=== PATIENT | female | born 1985 | race American Indian/Alaskan Native ===

== ENCOUNTER → 2016-06-25 | Outpatient (CLI) | payer OTHER ==
[~2016-06-25] MED LIST: CEPH-507 PO; SULF1TAB35 PO
--- OUTSIDE RECORDS SUMMARY | 2016-06-25 11:19 | XMS REPORT | Continuity of Care Document ---
Author Author [facility] Organization [facility] Address Unknown Phone Unavailable Care Team Providers Care Wireless Manager Name Role Phone PCP Unavailable Source Comments Some departments are not documenting in the electronic medical record. If you do not see the information that you expected, contact Release of Information in the Health Information Management department at [phone] for further assistance in locating additional records.[facility] Active Allergies and Adverse Reactions Not on File Current Medications Not on file Active Problems Not on file Social History Tobacco Use Types Packs/Day Years Used Date Never Assessed Plan of Care Health Maintenance Due Date Last Done Comments Physical (Comprehensive) 12/07/1994 Exam Pertussis Vaccine 12/07/1998 Tetanus Vaccine 12/07/2004 Cervical Cancer Screening 12/07/2008 Influenza Vaccine 01/15/2016 Results from Last 3 Months Not on file
== END ==
LOC: LAB 11:15
PROVIDERS: ATTEND Obstetrics & Gynecology Reproductive Endocrinology
DX: Z32.00 Encounter for pregnancy test, result unknown (principal)
CPT/HCPCS: 36415; 84144; 84702

== ENCOUNTER → 2016-06-28 | Outpatient (CLI) | payer OTHER ==
--- OUTSIDE RECORDS SUMMARY | 2016-06-28 11:04 | XMS REPORT | Continuity of Care Document ---
Author Author [facility] Organization [facility] Address Unknown Phone Unavailable Care Team Providers Care Pool Manager Name Role Phone PCP Unavailable Source Comments Some departments are not documenting in the electronic medical record. If you do not see the information that you expected, contact Release of Information in the Health Information Management department at [phone] for further assistance in locating additional records.[facility] Active Allergies and Adverse Reactions Not on [...]
== END ==
LOC: LAB 10:59
PROVIDERS: ATTEND Obstetrics & Gynecology Reproductive Endocrinology
DX: Z32.01 Encounter for pregnancy test, result positive (principal)
CPT/HCPCS: 36415; 84144; 84702

== ENCOUNTER → 2016-06-30 | Outpatient (CLI) | payer OTHER ==
--- OUTSIDE RECORDS SUMMARY | 2016-06-30 11:08 | XMS REPORT | Continuity of Care Document ---
Author Author [facility] Organization [facility] Address Unknown Phone Unavailable Care Team Providers Care Weekday Babysitter Name Role Phone PCP Unavailable Source Comments Some departments are not documenting in the electronic medical record. If you do not see the information that you expected, contact Release of Information in the Health Information Management department at [phone] for further assistance in locating additional records.[facility] Active Allergies and Adverse Reactions Not on [...]
== END ==
LOC: LAB 11:05
PROVIDERS: ATTEND Obstetrics & Gynecology Reproductive Endocrinology
DX: O20.0 Threatened abortion (principal)
CPT/HCPCS: 36415; 84144; 84702

== ENCOUNTER → 2016-07-22 | Outpatient (CLI) | payer OTHER ==
--- OUTSIDE RECORDS SUMMARY | 2016-07-23 22:26 | XMS REPORT | Continuity of Care Document ---
Author Author [facility] Organization [facility] Address Unknown Phone Unavailable Care Team Providers Care Business Process Consultant Name Role Phone PCP Unavailable Source Comments Some departments are not documenting in the electronic medical record. If you do not see the information that you expected, contact Release of Information in the Health Information Management department at [phone] for further assistance in locating additional records.[facility] Active Allergies and Adverse Reactions Not [...]
== END ==
LOC: LAB 09:18
PROVIDERS: ATTEND Obstetrics & Gynecology Reproductive Endocrinology
DX: O03.4 Incomplete spontaneous abortion without complication (principal)
CPT/HCPCS: 36415; 84702

== ENCOUNTER → 2016-09-21 | Outpatient (CLI) | payer OTHER | LOC: LAB 08:02 | PROVIDERS: ATTEND Obstetrics & Gynecology Reproductive Endocrinology | DX: Z32.00 Encounter for pregnancy test, result unknown (principal) | CPT/HCPCS: 36415; 84144; 84702 ==

== ENCOUNTER → 2016-09-27 | Outpatient (CLI) | payer OTHER | LOC: LAB 05:24 | PROVIDERS: ATTEND Obstetrics & Gynecology Reproductive Endocrinology | DX: Z32.01 Encounter for pregnancy test, result positive (principal) | CPT/HCPCS: 36415; 84144; 84702 ==

== ENCOUNTER 2018-02-03 19:53 | Outpatient (CLI) | payer OTHER ==
[2018-02-16] MEDS ORDERED: ACHD5005 PO (14:29)
== END 2018-02-04 06:25 | disposition home or self-care (01) ==
LOC: SLEEP 19:53
PROVIDERS: ATTEND Psychiatry & Neurology Neurology
DX: G47.33 Obstructive sleep apnea (adult) (pediatric) (principal); R41.3 Other amnesia; R06.83 Snoring
CPT/HCPCS: 95810

== ENCOUNTER → 2018-02-14 | Outpatient (CLI) | payer OTHER ==
[~2018-02-14] MED LIST changes: +ACHD5005 PO
--- NOTE | 2018-02-14 15:48 | Diagnostic Imaging Report ---
PROCEDURE: US Gallbladder. TECHNIQUE: Multiple Real-time grayscale images were obtained over the right upper quadrant in various projections. INDICATION: Right upper quadrant pain x 2 days. FINDINGS: The liver is normal in size. No discrete liver mass is identified. The gallbladder is without stones or sludge. No wall thickening or biliary ductal dilatation is seen. The pancreas is obscured by bowel gas. The right kidney is unremarkable. There is no ascites. IMPRESSION: No evidence of cholelithiasis or acute cholecystitis. Dictated by: Dictated on workstation # [id number]
== END ==
LOC: RAD 14:47
PROVIDERS: ATTEND Family Medicine
DX: R10.11 Right upper quadrant pain (principal)
CPT/HCPCS: 76705

== ENCOUNTER → 2018-02-15 | Outpatient (CLI) | payer OTHER ==
[~2018-02-15] MED LIST changes: +CATHETER FLUSH 10 ML SYR IV PRN
--- NOTE | 2018-02-15 16:04 | Diagnostic Imaging Report ---
INDICATION: Right upper quadrant pain. TECHNIQUE: Patient was administered 5.5 mCi technetium 99m Choletec intravenously and imaging over the abdomen was performed. At one hour, the patient ingested 8 ounces of Ensure and gallbladder ejection fraction was calculated. FINDINGS: Homogeneous uptake of activity by the liver is seen. There is prompt excretion of activity into the common duct and gallbladder. Normal passage of activity into the small bowel is seen. Gallbladder ejection fraction is normal at 44%. IMPRESSION: Normal HIDA scan and gallbladder ejection fraction. Dictated by: Dictated on workstation # [id number]
== END ==
LOC: CARD 12:35
PROVIDERS: ATTEND Family Medicine
DX: R10.11 Right upper quadrant pain (principal)
CPT/HCPCS: 78227

== ENCOUNTER 2018-02-16 09:52 | Inpatient (IN) | payer OTHER ==
[2018-02-16] VITALS (8 sets, daily range): BP systolic 108–157; BP diastolic 70–83
[~2018-02-16] VITALS: Ht 152.4 cm; Wt 78.0 kg
[~2018-02-16 09:52] MED LIST changes: -ACHD5005 PO; -CATHETER FLUSH 10 ML SYR IV PRN
[2018-02-16] MEDS: LACTATED RINGERS 1,000 ML IV SCH ×2 (10:35→13:47)
[2018-02-16 10:45] LABS: HEMOGLOBIN 13.2 G/DL (11.5-16.0); MEAN PLATELET VOLUME 10.5 FL (7.4-10.4); RED BLOOD COUNT 4.72 10^6/uL (4.35-5.85); RED CELL DISTRIBUTION WIDTH 13.3 % (10.0-14.5); WHITE BLOOD COUNT 6.3 10^3/uL (4.3-11.0)
[2018-02-16 11:10] LABS: ALANINE AMINOTRANSFERASE 14 U/L (0-55); ALBUMIN 4.3 GM/DL (3.2-4.5); ALKALINE PHOSPHATASE 49 U/L (40-136); BILIRUBIN,TOTAL 0.6 MG/DL (0.1-1.0); BUN/CREATININE RATIO 18; CALCIUM 9.3 MG/DL (8.5-10.1); CARBON DIOXIDE 20 MMOL/L (21-32); CHLORIDE 108 MMOL/L (98-107); CREATININE SERUM 0.62 MG/DL (0.60-1.30); GFR ESTIMATED > 60; GLUCOSE 83 MG/DL (70-105); POTASSIUM 3.9 MMOL/L (3.6-5.0); SODIUM 137 MMOL/L (135-145); TOTAL PROTEIN 7.4 GM/DL (6.4-8.2)
[2018-02-16] MEDS ORDERED: MIDAZOLAM 2 MG/2 ML (VERSED) VIAL ONE (12:10)
[2018-02-16] MEDS ORDERED: fentaNYL INJECTION 100 MCG/2 ML AMP ONE ×2 (12:10→14:13)
[2018-02-16] MEDS ORDERED: BUP/EPI 0.5% 1:200,000 (SENSORCAINE) 30 ML VIAL ONE (12:17)
[2018-02-16] MEDS ORDERED: proPOfol 200 MG/20 ML (DIPRIVAN) VIAL IV ONE (12:23)
[2018-02-16] MEDS ORDERED: ROCURONIUM 10 MG/ML 5 ML SYRINGE IV ONE (12:23)
[2018-02-16] MEDS ORDERED: ONDANSETRON 4 MG/2 ML (SDV) Z0FRAN ONE (12:23)
[2018-02-16] MEDS ORDERED: DEXAMETHASONE 10 MG/ML (DECADRON) 1 ML VIAL ONE (12:23)
[2018-02-16] MEDS ORDERED: LIDOCAINE PF 2% 2 ML (XYLOCAINE) VIAL ONE ×2 (12:23→12:24)
[2018-02-16] MEDS ORDERED: SEVOFLURANE (ULTANE) 15 ML INHAL SOLN ONE ×6 (12:23→14:26)
--- NOTE | 2018-02-16 12:58 | Progress Note-Pre Operative ---
Pre-Operative Progress Note H&P Reviewed The H&P was reviewed, patient examined and no changes noted. Date Seen by Provider: Feb 16, 2018 Time Seen by Provider: 09:20 Date H&P Reviewed: Feb 16, 2018 Time H&P Reviewed: 12:57 Pre-Operative Diagnosis: Chronic acalculous cholecystitis GAURI VIRAMONTES MD Feb 16, 2018 12:57
[2018-02-16] MEDS ORDERED: ceFAZolin 1,000 MG/10 ML (ANCEF) VIAL ONE (13:30)
[2018-02-16] MEDS ORDERED: metroNIDAZOLE 500MG/100ML IVPB 100 ML ONE (13:30)
[2018-02-16] MEDS ORDERED: ceFAZolin INJECTION 1,000 MG in NS (IVPB) 50 ML IV ONE (14:00)
[2018-02-16] MEDS ORDERED: metroNIDAZOLE 500MG/100ML IVPB 100 ML IV ONE (14:00)
[2018-02-16] MEDS ORDERED: NEOSTIGMINE 1 MG/ML 5 ML SYRINGE ONE (14:02)
[2018-02-16] MEDS ORDERED: GLYCOPYRROLATE 0.2 MG/ML (ROBINUL) 2 ML VIAL ONE (14:02)
--- NOTE | 2018-02-16 14:27 | Operative Report ---
Operative Report Date of Procedure/Surgery Feb 16, 2018 Surgeon (s) GAURI VIRAMONTES MD Commuter Pilot (s): Ravi Francis (Med Student) Post-Operative Diagnosis same Procedure Performed robotic-assisted cholecystectomy Description of Procedure Anesthesia Type: General Estimated blood loss (mL): minimal Specimen(s) collected/removed gallbladder Description of the Procedure Indication for the procedure: This lady presented with severe symptoms due to chronic, acalculous cholecystitis. Despite reasonably normal ejection fraction on HIDA scan, due to her classic symptoms, it produced during the study, it was felt reasonable to offer cholecystectomy. Informed consent was obtained after reviewing the details and complications of wound infection, bile leak and the potential for persistent symptoms, requiring further evaluation. Description of procedure: She was placed supine on the operative table and general anesthesia induced. A gram of Ancef and 500 mg of Flagyl were administered intravenously as prophylaxis against wound infection. Sequential compression devices were placed around her legs, to minimize the risk of venous thrombosis. Abdomen was prepared and draped in the usual sterile manner. Initially, I attempted to establish pneumoperitoneum using a Veress needle. Since it was difficult, I elected to use a cutdown technique under direct view. Linea alba was incised vertically and a 12 mm trocar introduced gently. Insufflation was obtained at 15 mmHg using carbon dioxide insufflation. Anatomy was visualized using the 3-dimensional, high-definition laparoscope associated with da Junior system. Under direct view, I placed an 8 mm trocar over the left side of the abdomen and examine the peritoneal cavity very carefully using the laparoscope. There was no iatrogenic injury. We then proceeded with the rest of the operation. A 5 mm trocar was placed over the left subcostal region, followed by another 8 mm trocar over the right side of abdomen. Patient was then turned into reverse Trendelenburg position, with the right side tilted up. The fundus of the gallbladder was retracted cephalad and the infundibulum grasped with Cadiere forceps. Peritoneum overlying Calot's triangle was incised using the hook cautery, delineating the cystic duct and the artery. Both were divided between locking clips. Cholecystectomy was then completed using the hook cautery. The gallbladder was then placed in an Endo Catch bag and removed via the supraumbilical trocar site. The fascia over this incision was closed using #1 Vicryl using the Raul Quick device, under direct view. Skin incisions were closed using 4-0 Vicryl, in a subcuticular fashion. 0.5 percent Marcaine with epinephrine was infiltrated along the incisions, both preemptively and at the conclusion of the operation. She tolerated the procedure well, was extubated in the operating room and taken to the recovery room in a stable condition. Findings of the Procedure See op report Allergies and Home Medications Allergies Coded Allergies: No Known Drug Allergies (Unverified , 11/03/15) Home Medications Cephalexin 500 Mg Capsule, 500 MG PO QID Prescribed by: BEHZAD GAVIN on 11/03/15 1741 Sulfamethoxazole/Trimethoprim 1 Each Tablet, 1 EACH PO BID, (Reported) Patient Home Medication List Home Medication List Reviewed: Yes GAURI VIRAMONTES MD Feb 16, 2018 14:27
[2018-02-16] MEDS ORDERED: ACHD5005 PO (14:29)
--- NOTE | 2018-02-16 14:29 | Discharge Inst-Simple/Standard ---
Discharge Inst-Standard Discharge Medications New, Converted or Re-Newed RX: RX on Chart Patient Instructions/Follow Up Plan of Care/Instructions/FU: Band-Aids off in 48 hours. Incentive spirometry. Follow-up in 2 weeks. Activity as Tolerated: Yes Discharge Diet: No Restrictions GAURI VIRAMONTES MD Feb 16, 2018 14:29
[2018-02-16] MEDS ORDERED: ONDANSETRON 4 MG/2 ML (SDV) Z0FRAN IVP PRN (15:00)
[2018-02-16] MEDS ORDERED: morphine INJ 10 MG/ML 1ML (SYR OR VIAL) IVP ONE (15:00)
[2018-02-16] MEDS ORDERED: HYDROmorphone 2 MG/ML VIAL (DILAUDID) IV ONE (15:00)
[2018-02-16] MEDS ORDERED: KETOROLAC 30 MG/ML VIAL IVP ONE (15:15)
[2018-02-16] MEDS ORDERED: HYDROcodone/APAP 5 MG/325 MG (LORTAB) TAB ONE (16:14)
[2018-02-16] MEDS ORDERED: HYDROcodone/APAP 5 MG/325 MG (LORTAB) TAB PO ONE (16:15)
[2018-02-16] MEDS ORDERED: ONDANSETRON 4 MG/2 ML (SDV) Z0FRAN IVP ONE (17:15)
[2018-02-16] MEDS ORDERED: fentaNYL INJECTION 100 MCG/2 ML AMP IVP ONE (17:15)
[2018-02-16] MEDS: fentaNYL INJECTION 100 MCG/2 ML AMP IVP PRN ×3 (18:36→22:41)
[2018-02-16] MEDS ORDERED: FLU QUADRIvalent (5+ YOA) 2018-2019 (AFLURIA) 0.5 ML IM ONE (19:00)
[2018-02-16] MEDS: oxyCODONE/APAP 5/325MG (PERCOCET 5) TABLET PO PRN (21:13)
[2018-02-17] VITALS: BP 114/72
[2018-02-17] MEDS: fentaNYL INJECTION 100 MCG/2 ML AMP IVP PRN ×8 (01:00→23:49)
[2018-02-17 04:05] VITALS: BP 108/59
[2018-02-17] MEDS: oxyCODONE/APAP 5/325MG (PERCOCET 5) TABLET PO PRN ×5 (06:24→21:58)
[2018-02-17 08:00] VITALS: BP 111/59
[2018-02-17 12:00] VITALS: BP 101/55
--- NOTE | 2018-02-17 13:31 | Progress Note-Standard ---
Standard Progress Note Progress Notes/Assess & Plan Date Seen by a Provider: Feb 17, 2018 Time Seen by a Provider: 09:25 Progress/Assessment & Plan she was placed under observation status last night due to pain over the incision along the right-side of the abdomen. There is no evidence of he hematoma and her vital signs are stable. The rest of the abdomen is soft and it is very likely that she has ecchymosis of the muscle layers contributing to her symptoms. I have suggested using ice packs and it is likely she will be discharged home later today Final Diagnosis chronic cholecystitis GAURI VIRAMONTES MD Feb 17, 2018 13:31
[2018-02-17] MEDS: fentaNYL INJECTION 100 MCG/2 ML AMP IVP NR ×2 (14:32→17:01)
[2018-02-17] MEDS: NS IV 1000 ML 1,000 ML IV SCH ×4 (14:33→21:09)
[2018-02-17] MEDS ORDERED: IOHEXOL 350 MG/ML 100 ML (OMNIPAQUE 350) VIAL IV ONE (14:45)
[2018-02-17] MEDS ORDERED: NS 250 ML (IVPB) BAG IV ONE (14:45)
[2018-02-17] MEDS ORDERED: RECEIVED CONTRAST (Hold Metformin) IV SCH (14:45)
--- NOTE | 2018-02-17 15:15 | Progress Note-Standard ---
Standard Progress Note Progress Notes/Assess & Plan Date Seen by a Provider: Feb 17, 2018 Time Seen by a Provider: 14:50 Progress/Assessment & Plan she was placed under observation status last night due to pain over the incision along the right-side of the abdomen. There is no evidence of he hematoma and her vital signs are stable. The rest of the abdomen is soft and it is very likely that she has ecchymosis of the muscle layers contributing to her symptoms. I have suggested using ice packs and it is likely she will be discharged home later today. ! (2:50 pm): Re-examined and her pain seems to be unrelieved. No evidence of peritonitis on exam. Point tenderness over RLQ with no obvious external hematoma. CT with contrast obtained, revealing post-op changes with no muscular or retroperitoneal hematoma. Incidental right breast lump, possibly a fibro- adenoma and a right ovarian cyst identified. Patient reassured. Will treat symptomatically. Final Diagnosis Post-cholecystectomy abdominal pain GAURI VIRAMONTES MD Feb 17, 2018 15:15
[2018-02-17] MEDS: ONDANSETRON 4 MG/2 ML (SDV) Z0FRAN IVP PRN (15:20)
--- NOTE | 2018-02-17 15:22 | Diagnostic Imaging Report ---
PROCEDURE: CT abdomen and pelvis with contrast. TECHNIQUE: Multiple contiguous axial images were obtained through the abdomen and pelvis after administration of intravenous contrast. INDICATION: Recent cholecystectomy. Patient complains of right-sided abdominal pain. COMPARISON: No prior studies are available for comparison. FINDINGS: There is a circumscribed mass in the right breast measuring 2.5 cm. Breast ultrasound would be useful for further evaluation. Trace pleural fluid is seen bilaterally. There are bibasilar infiltrates or atelectasis present. There is a 12 mm rounded low-density lesion within the posterior right lobe of the liver near the dome, too small to characterize. No other masses are seen. There are postop changes of cholecystectomy. Minimal fluid in the gallbladder fossa is seen, to be expected for a patient recently postop. There is a mall pneumoperitoneum present. The pancreas and spleen are unremarkable. No adrenal mass is seen. The kidneys are unremarkable. Aorta is non-aneurysmal. There is no free fluid in the abdomen. No retroperitoneal hemorrhage or abdominal wall hematoma identified. The bladder and uterus are unremarkable. There is an approximately 3.2 cm cyst involving the right ovary. Trace free fluid in the pelvis is seen likely physiologic. IMPRESSION: 1. 2.5 cm right breast mass, perhaps a fibroadenoma. Sonographic interrogation is recommended for further evaluation. 2. Trace bilateral pleural effusions with bibasilar infiltrates or atelectasis. 3. Status post cholecystectomy. No complicating features are seen. There is no evidence of hemoperitoneum, retroperitoneal hemorrhage or abdominal wall hematoma. 4. Right ovarian cyst. Dictated by: Dictated on workstation # [id number]
[2018-02-17 16:05] VITALS: BP 118/67
[2018-02-17] MEDS: LACTATED RINGERS 1,000 ML IV SCH ×3 (17:00→19:18)
[2018-02-17 19:30] VITALS: BP 120/62
[2018-02-17] MEDS: cefTRIAXone FOR IV USE 1,000 MG in NS (IVPB) 50 ML IV SCH (19:52)
[2018-02-18] VITALS: BP 101/55
[2018-02-18] MEDS: NS IV 1000 ML 1,000 ML IV SCH
[2018-02-18] MEDS: LACTATED RINGERS 1,000 ML IV SCH ×3 (01:45→19:05)
[2018-02-18 04:00] VITALS: BP 100/59
[2018-02-18] MEDS: fentaNYL INJECTION 100 MCG/2 ML AMP IVP PRN ×5 (04:06→19:04)
[2018-02-18 08:00] VITALS: BP 108/55
[2018-02-18] MEDS: cefTRIAXone FOR IV USE 1,000 MG in NS (IVPB) 50 ML IV SCH (08:31)
[2018-02-18] MEDS: oxyCODONE/APAP 5/325MG (PERCOCET 5) TABLET PO PRN ×3 (08:32→23:49)
[2018-02-18 09:51] LABS: HEMOGLOBIN 11.2 G/DL (11.5-16.0); RED BLOOD COUNT 3.96 10^6/uL (4.35-5.85); RED CELL DISTRIBUTION WIDTH 13.5 % (10.0-14.5); WHITE BLOOD COUNT 5.7 10^3/uL (4.3-11.0)
[2018-02-18 10:10] LABS: ALANINE AMINOTRANSFERASE 33 U/L (0-55); ALBUMIN 3.5 GM/DL (3.2-4.5); ALKALINE PHOSPHATASE 42 U/L (40-136); BILIRUBIN,TOTAL 0.3 MG/DL (0.1-1.0); BUN/CREATININE RATIO 8; CALCIUM 8.5 MG/DL (8.5-10.1); CARBON DIOXIDE 19 MMOL/L (21-32); CHLORIDE 108 MMOL/L (98-107); CREATININE SERUM 0.61 MG/DL (0.60-1.30); GFR ESTIMATED > 60; GLUCOSE 129 MG/DL (70-105); POTASSIUM 3.7 MMOL/L (3.6-5.0); SODIUM 137 MMOL/L (135-145); TOTAL PROTEIN 5.9 GM/DL (6.4-8.2)
[2018-02-18 12:00] VITALS: BP 110/58
--- NOTE | 2018-02-18 12:23 | Progress Note ---
Subjective Date Seen by a Provider: Feb 18, 2018 Time Seen by a Provider: 12:18 Subjective/Events-last exam Patient states she's having continued pain that is severe. It Will let up a little bit when receiving pain medication, but when the pain medication wears off it continues to be right back being severe. She is stating the pain is all over her abdomen, and sometimes moving into the back. Patient is having some nausea. She is not having any vomiting. She denies any fevers chills shortness of breath or chest pain. Patient with decreased appetite. Patient was CT scan yesterday with no acute findings. Patient concern for bile leak. Objective Exam Vital Signs Date Time Temp Pulse Resp B/P (MAP) Pulse Ox O2 Delivery O2 Flow Rate FiO2 02/18/18 08:00 99.2 79 22 108/55 (72) 99 Room Air 02/18/18 04:00 98.5 71 18 100/59 (73) 96 Room Air 02/18/18 00:00 99.3 89 20 101/55 (70) 95 Room Air 02/17/18 20:55 Room Air 02/17/18 19:30 100.4 83 20 120/62 (81) 97 Room Air 02/17/18 16:46 Room Air 02/17/18 16:05 98.7 69 18 118/67 (84) 98 Room Air I & O 02/18/18 07:00 Intake Total 3400 ml Output Total 400 ml Balance 3000 ml Capillary Refill : General Appearance: Mild Distress HEENT: PERRL/EOMI Neck: Supple Respiratory: Chest Non Tender, No Accessory Muscle Use, No Respiratory Distress Cardiovascular: Regular Rate, Rhythm Gastrointestinal: tenderness (Diffuse, no signs of peritonitis no guarding or rebounding) Neurologic/Psychiatric: Alert, Oriented x3 Skin: Normal Color, Warm/Dry Lymphatic: No Adenopathy Results Lab Laboratory Tests 02/18/18 09:40: White Blood Count 5.7, Red Blood Count 3.96L, Hemoglobin 11.2L, Hematocrit 33L, Mean Corpuscular Volume 83, Mean Corpuscular Hemoglobin 28, Mean Corpuscular Hemoglobin Concent 34, Red Cell Distribution Width 13.5, Platelet Count 191, Mean Platelet Volume 10.0, Sodium Level 137, Potassium Level 3.7, Chloride Level 108H, Carbon Dioxide Level 19L, Anion Gap 10, Blood Urea Nitrogen 5L, Creatinine 0.61, Estimat Glomerular Filtration Rate > 60, BUN/Creatinine Ratio 8 , Glucose Level 129H, Calcium Level 8.5, Corrected Calcium 8.9, Total Bilirubin 0.3, Aspartate Amino Transf (AST/SGOT) 23, Alanine Aminotransferase (ALT/SGPT) 33, Alkaline Phosphatase 42, Total Protein 5.9L, Albumin 3.5 Assessment/Plan Assessment/Plan Assessment/Plan Patient status post Cholecystectomy with postoperative pain. She has been admitted and had a CT scan performed with no acute postoperative surgical complications noted. Her pain is slightly more than what I would expect. We' ll get a CBC and CMP and get a HIDA scan to further evaluate. Patient and in agreement with plan. Clinical Quality Measures DVT/VTE Risk/Contraindication: Risk Factor Score Per Nursin RFS Level Per Nursing on Admit: 2=Moderate FIDELINA OCASIO DO Feb 18, 2018 12:23
--- NOTE | 2018-02-18 14:32 | Diagnostic Imaging Report ---
PROCEDURE: Nuclear medicine HIDA scan without ejection fraction. INDICATION: Abdominal pain. COMPARISON: CT abdomen and pelvis with IV contrast 02/17/2018. Tc-99m Choletec 5.5 mCi IV FINDINGS: The upper abdomen was imaged for 60 minutes with the gamma camera. There is normal appearance of activity in the liver. There is activity in the common duct within 10 minutes. There is normal peristalsis of activity through the small bowel. No evidence of a biliary leak. IMPRESSION: Cholecystectomy. Normal excretion of activity into the common bile duct and duodenum. No evidence of biliary leak. Dictated by: Dictated on workstation # [id number]
[2018-02-18] MEDS: ONDANSETRON 4 MG/2 ML (SDV) Z0FRAN IVP PRN (14:51)
[2018-02-18 16:35] VITALS: BP 99/58
[2018-02-18] MEDS ORDERED: KETOROLAC 30 MG/ML VIAL IVP ONE (16:45)
[2018-02-19] VITALS: BP 111/58
[2018-02-19] MEDS: oxyCODONE/APAP 5/325MG (PERCOCET 5) TABLET PO PRN ×2 (03:34→07:45)
[2018-02-19] MEDS: LACTATED RINGERS 1,000 ML IV SCH ×2 (04:17→05:05)
[2018-02-19] MEDS: cefTRIAXone FOR IV USE 1,000 MG in NS (IVPB) 50 ML IV SCH (07:54)
[2018-02-19 08:00] VITALS: BP 109/53
[2018-02-19] MEDS: fentaNYL INJECTION 100 MCG/2 ML AMP IVP PRN (09:54)
[2018-02-19 11:53] VITALS: BP 109/53
--- NOTE | 2018-02-19 12:39 | Progress Note ---
Subjective Date Seen by a Provider: Feb 19, 2018 Time Seen by a Provider: 10:43 Subjective/Events-last exam Patient states that she's still for about the same as yesterday. She still having pain All over Her Abdomen but No Worsening Pain. Her Pain Is Controlled with Pain Medication. Patient Denies Any Nausea Vomiting Fever Sweats Chills Shortness of Breath or Chest Pain. Patient Tolerating Diet. Patient Had a HIDA Scan Which Did Not Demonstrate Any Leak. Patient with No New Complaints. Objective Exam Vital Signs Date Time Temp Pulse Resp B/P (MAP) Pulse Ox O2 Delivery O2 Flow Rate FiO2 02/19/18 11:53 71 22 109/53 95 Room Air 02/19/18 09:54 97.1 02/19/18 08:20 97.1 02/19/18 08:00 Room Air 02/19/18 08:00 98.0 71 22 109/53 (71) 95 Room Air 02/19/18 00:00 97.1 80 18 111/58 (75) 96 Room Air 02/18/18 19:49 Room Air 02/18/18 16:35 98.3 84 18 99/58 (72) 96 Room Air I & O 02/19/18 07:00 Intake Total 2370 ml Output Total 1050 ml Balance 1320 ml Capillary Refill : General Appearance: No Apparent Distress HEENT: PERRL/EOMI Neck: Non Tender, Supple Respiratory: Chest Non Tender, No Accessory Muscle Use, No Respiratory Distress Cardiovascular: Regular Rate, Rhythm Gastrointestinal: tenderness (Diffuse, incisions are clean dry and intact no signs of infection, abdominal tenderness about the same as yesterday may be slightly improved) Neurologic/Psychiatric: Alert, Oriented x3 Skin: Normal Color, Warm/Dry Lymphatic: No Adenopathy Assessment/Plan Assessment/Plan Assessment/Plan Patient status post Cholecystectomy with postoperative pain. She has been admitted and had a CT scan performed with no acute postoperative surgical complications noted. Her HIDA scan did not demonstrate any leak or any other abnormality. I feel this is most likely postoperative pain. Patient was discuss all of these findings and she is wanting to go home today. Patient instructed that if she has any changes she should be reexamined at that time. I feel that with the workup that she's had very minimal chance that there is any type of complication and this is just normal postoperative pain for her. Clinical Quality Measures DVT/VTE Risk/Contraindication: Risk Factor Score Per Nursin RFS Level Per Nursing on Admit: 2=Moderate FIDELINA OCASIO DO Feb 19, 2018 12:39
== END 2018-02-19 12:22 | disposition home or self-care (01) | DRG 419 ==
LOC: SDC 09:52 → 4TH 16:50 → OBSVTOIN 02-18 15:52
PROVIDERS: ADMIT Surgery; ATTEND Surgery
PROC: 8E0W4CZ Robotic Assisted Procedure of Trunk Region, Percutaneous Endoscopic Approach (ICD-10-PCS; 2018-02-16)
PROC: 0FT44ZZ Resection of Gallbladder, Percutaneous Endoscopic Approach (ICD-10-PCS; principal; 2018-02-16 13:00)
DX: K81.1 Chronic cholecystitis (principal); G89.18 Other acute postprocedural pain; R10.84 Generalized abdominal pain; E66.9 Obesity, unspecified; Z68.33 Body mass index [BMI] 33.0-33.9, adult
CPT/HCPCS: 36415; 74177; 78226; 80053; 84703; 85027; 94640; 94664; G0378

== ENCOUNTER → 2018-08-02 | Outpatient (CLI) | payer OTHER ==
[~2018-08-02] MED LIST changes: +ACHD5005 PO
--- NOTE | 2018-08-02 11:20 | Diagnostic Imaging Report ---
INDICATION: Twin intrauterine . The patient complains of bleeding. FINDINGS: The uterus measures 8.3 x 6.7 x 6.3 cm. There appear to be two gestational sacs within the endometrium. The sac measurements are consistent with approximately 6 weeks 1 day. No pole is seen within either sac. No perigestational sac hemorrhage is detected. There does appear to be a fibroid in the uterine fundus measuring approximately 3.9 x 2.6 cm. Adnexal evaluation demonstrates the right ovary to be unremarkable. The left ovary was not visualized. No adnexal mass or free fluid is seen. IMPRESSION: 1. Twin intrauterine gestational sacs measuring approximately 6 weeks 1 day. No pole is seen at this time. Followup ultrasound and/or correlation with serial beta hCG levels could be performed to confirm viability. No adnexal mass or free fluid is seen. 2. Uterine fibroid. Dictated by: Dictated on workstation # [id number]
== END ==
LOC: RAD 08:46
PROVIDERS: ATTEND Family Medicine
DX: O34.11 Maternal care for benign tumor of corpus uteri, first trimester (principal); O20.9 Hemorrhage in early pregnancy, unspecified; O30.001 Twin pregnancy, unspecified number of placenta and unspecified number of amniotic sacs, first trimester; Z3A.01 Less than 8 weeks gestation of pregnancy
CPT/HCPCS: 76801; 76817

== ENCOUNTER 2018-08-15 17:48 | Observation (INO) | payer OTHER ==
[~2018-08-15] VITALS: Ht 152.4 cm; Wt 78.9 kg
[2018-08-15] MEDS ORDERED: NS IV 1000 ML 1,000 ML IV SCH ×2 (18:18→23:00)
[2018-08-15 18:24] LABS: BASOPHILS % (AUTO) 0 % (0-10); EOSINOPHILS # (AUTO) 0.5 10^3/uL (0.0-0.3); EOSINOPHILS % (AUTO) 5 % (0-10); HEMATOCRIT 40 % (35-52); HEMOGLOBIN 13.3 G/DL (11.5-16.0); LYMPHOCYTES % (AUTO) 20 % (12-44); MEAN CORPUSCULAR HEMOGLOBIN 27 PG (25-34); MEAN CORPUSCULAR HGB CONC 34 G/DL (32-36); MEAN CORPUSCULAR VOLUME 81 FL (80-99); MEAN PLATELET VOLUME 10.7 FL (7.4-10.4); MONOCYTES # (AUTO) 0.6 X 10^3 (0.0-1.0); MONOCYTES % (AUTO) 6 % (0-12); NEUTROPHILS # (AUTO) 6.9 X 10^3 (1.8-7.8); NEUTROPHILS % (AUTO) 68 % (42-75); PLATELET COUNT 261 10^3/uL (130-400); RED CELL DISTRIBUTION WIDTH 15.1 % (10.0-14.5); WHITE BLOOD COUNT 10.1 10^3/uL (4.3-11.0)
[2018-08-15] MEDS ORDERED: ONDANSETRON 4 MG/2 ML (SDV) Z0FRAN IVP ONE ×3 (18:30→20:30)
[2018-08-15 18:43] LABS: ALANINE AMINOTRANSFERASE 11 U/L (0-55); ALBUMIN 3.9 GM/DL (3.2-4.5); ALKALINE PHOSPHATASE 45 U/L (40-136); BILIRUBIN,TOTAL 0.3 MG/DL (0.1-1.0); BUN/CREATININE RATIO 10; CALCIUM 9.8 MG/DL (8.5-10.1); CARBON DIOXIDE 20 MMOL/L (21-32); CHLORIDE 108 MMOL/L (98-107); CREATININE SERUM 0.62 MG/DL (0.60-1.30); GFR ESTIMATED > 60; GLUCOSE 91 MG/DL (70-105); POTASSIUM 4.2 MMOL/L (3.6-5.0); SODIUM 137 MMOL/L (135-145)
[2018-08-15] MEDS ORDERED: PROG50VI2 IM (18:47)
[2018-08-15] MEDS ORDERED: ESTRADIOL (18:47)
[2018-08-15] MEDS ORDERED: ONDN4T PO (18:47)
--- NOTE | 2018-08-15 18:57 | ED GU-Female ---
General Chief Complaint: Abdominal/GI Problems Stated Complaint: VOMITING - 8 WKS PREG TWINS Nursing Triage Note: PT PRESENTS TO ED WITH COMPLAINTS OF N/V AND UNABLE TO KEEP ANY FOOD OR LIQUIDS DOWN. PT STATES SHE IS 8 WEEKS PREG WITH TWINS AND HAS HAD TERRIBLE MORNING SICKNESS WITH THIS . Nursing Sepsis Screen: No Definite Risk Source: patient, spouse Exam Limitations: no limitations History of Present Illness Date Seen by Provider: Aug 15, 2018 Time Seen by Provider: 18:40 Initial Comments 32-year-old female patient presents to the emergency department complains of nausea and vomiting/morning sickness with . Patient states she is approximately 8 weeks gestation with twins. Patient was seen by Dr. Gillette at infertility clinic on Tuesday with positive heart tones for both fetuses. Patient also sees Dr. Escalante at [facility] for high risk . No improvement with Zofran, Bonjesta, dana edie, and preggie pops. Timing/Duration: other (onset 2-3 wks) Severity/Quality: moderate Activities at Onset: none Prior Genitourinary Problems: similar symptoms Sexual Citronelle History: less than 2 months ago, single partner Modifying Factors: Worsens With Eating, Worsens With Other (drinking fluids. ) Allergies and Home Medications Allergies Coded Allergies: No Known Drug Allergies (Unverified , 08/16/18) Home Medications Hydrocodone Bit/Acetaminophen 1 Tab Tab, 1-2 TAB PO Q6H PRN for PAIN-MODERATE Prescribed by: GAURI VIRAMONTES on 02/16/18 1429 Patient Home Medication List Home Medication List Reviewed: Yes Review of Systems Review of Systems Constitutional: No chills, No diaphoresis, No dizziness, No fever, No malaise; other (fatigue) EENTM: no symptoms reported Respiratory: No cough, No dyspnea on exertion, No orthopnea, No phlegm, No short of breath Cardiovascular: No chest pain, No edema, No palpitations, No syncope Gastrointestinal: see HPI; No abdominal pain, No constipation, No diarrhea, No hematemesis; loss of appetite; No melena; nausea, vomiting Genitourinary: denies burning, denies discharge, denies dysuria, denies frequency, denies flank pain, denies hematuria, denies pain : Yes Musculoskeletal: no symptoms reported Skin: no symptoms reported Psychiatric/Neurological: No Symptoms Reported All Other Systemes Reviewed Negative Unless Noted: Yes (Negative excepted noted.) Past Yqqvjxy-Imqwmi-Afzisv Hx Past Med/Social Hx: Reviewed Nursing Past Med/Soc Hx Patient Social History Alcohol Use: Denies Use Recreational Drug Use: No Smoking Status: Never a Smoker Recent Foreign Travel: No Contact w/Someone Who Travel: No Recent Infectious Disease Expo: No Recent Hopitalizations: No Physical Abuse: No Sexual Abuse: No Mistreated: No Fear: No Immunizations Up To Date Date of Influenza Vaccine: Feb 15, 2018 Past Medical History Surgeries: Yes (LEFT ACL) Appendectomy, Gallbladder, Orthopedic, Tonsillectomy Respiratory: No Cardiac: No Neurological: No : Yes Hx : 10 Hx Para: 2 Hx Total # of Abortions (Sp): 7 Reproductive Disorders: Yes (fertility problems) Sexually Transmitted Disease: No HIV/AIDS: No Genitourinary: No Gastrointestinal: No Musculoskeletal: No Endocrine: No Cancer: No Psychosocial: No Integumentary: No Blood Disorders: No Family Medical History Reviewed Nursing Family Hx No Pertinent Family Hx Physical Exam Vital Signs Vital Signs - First Documented 08/15/18 18:34 Temp 97.6 Pulse 77 Resp 20 B/P (MAP) 117/56 (76) Pulse Ox 98 Capillary Refill : Less Than 3 Seconds Height, Weight, BMI Height: 5'0" Weight: 174lbs. 0.0oz. 78.268293ae; 33.6 BMI Method:Stated General Appearance: WD/WN, no apparent distress HEENT: PERRL/EOMI, pharynx normal, other (dry lips and oral mucosa noted) Neck: non-tender, supple, normal inspection Cardiovascular: normal peripheral pulses, regular rate, rhythm, no edema, no gallop, no murmur Respiratory: lungs clear, normal breath sounds, no respiratory distress, no accessory muscle use Gastrointestinal: normal bowel sounds, non tender, soft, no organomegaly; No distended Back: normal inspection, no CVA tenderness Extremities: no pedal edema, no calf tenderness, normal capillary refill Neurologic/Psychiatric: alert, normal mood/affect, oriented x 3 Skin: normal color, warm/dry Progress/Results/Core Measures Suspected Sepsis Recent Fever Within 48 Hours: No Infection Criteria Present: None New/Unexplained Altered Menta: No Sepsis Screen: No Definite Risk SIRS Temperature:97.6 Pulse: 77 Respiratory Rate: 20 Laboratory Tests 08/15/18 18:16: White Blood Count 10.1 Blood Pressure 117 /56 Mean: 76 Laboratory Tests 08/15/18 18:16: Creatinine 0.62, Platelet Count 261, Total Bilirubin 0.3 Results/Orders Lab Results Laboratory Tests Test 08/15/18 18:16 08/15/18 21:31 Range/Units White Blood Count 10.1 4.3-11.0 10^3/uL Red Blood Count 4.89 4.35-5.85 10^6/uL Hemoglobin 13.3 11.5-16.0 G/DL Hematocrit 40 35-52 % Mean Corpuscular Volume 81 80-99 FL Mean Corpuscular Hemoglobin 27 25-34 PG Mean Corpuscular Hemoglobin Concent 34 32-36 G/DL Red Cell Distribution Width 15.1 H 10.0-14.5 % Platelet Count 261 130-400 10^3/uL Mean Platelet Volume 10.7 H 7.4-10.4 FL Neutrophils (%) (Auto) 68 42-75 % Lymphocytes (%) (Auto) 20 12-44 % Monocytes (%) (Auto) 6 0-12 % Eosinophils (%) (Auto) 5 0-10 % Basophils (%) (Auto) 0 0-10 % Neutrophils # (Auto) 6.9 1.8-7.8 X 10^3 Lymphocytes # (Auto) 2.0 1.0-4.0 X 10^3 Monocytes # (Auto) 0.6 0.0-1.0 X 10^3 Eosinophils # (Auto) 0.5 H 0.0-0.3 10^3/uL Basophils # (Auto) 0.0 0.0-0.1 10^3/uL Sodium Level 137 135-145 MMOL/L Potassium Level 4.2 3.6-5.0 MMOL/L Chloride Level 108 H 98-107 MMOL/L Carbon Dioxide Level 20 L 21-32 MMOL/L Anion Gap 9 5-14 MMOL/L Blood Urea Nitrogen 6 L 7-18 MG/DL Creatinine 0.62 0.60-1.30 MG/DL Estimat Glomerular Filtration Rate > 60 BUN/Creatinine Ratio 10 Glucose Level 91 70-105 MG/DL Calcium Level 9.8 8.5-10.1 MG/DL Corrected Calcium 9.9 8.5-10.1 MG/DL Total Bilirubin 0.3 0.1-1.0 MG/DL Aspartate Amino Transf (AST/SGOT) 17 5-34 U/L Alanine Aminotransferase (ALT/SGPT) 11 0-55 U/L Alkaline Phosphatase 45 40-136 U/L Total Protein 7.0 6.4-8.2 GM/DL Albumin 3.9 3.2-4.5 GM/DL Human Chorionic Gonadotropin, Quant [id number] H <5 MIU/ML Urine Color YELLOW Urine Clarity SLIGHTLY CLOUDY Urine pH 6 5-9 Urine Specific [place] 1.025 H 1.016-1.022 Urine Protein NEGATIVE NEGATIVE Urine Glucose (UA) NEGATIVE NEGATIVE Urine Ketones 4+ H NEGATIVE Urine Nitrite NEGATIVE NEGATIVE Urine Bilirubin NEGATIVE NEGATIVE Urine Urobilinogen NORMAL NORMAL MG/DL Urine Leukocyte Esterase 3+ H NEGATIVE Urine RBC (Auto) 3+ H NEGATIVE Urine RBC NONE /HPF Urine WBC 10-25 H /HPF Urine Squamous Epithelial Cells 10-25 H /HPF Urine Crystals NONE /LPF Urine Bacteria FEW H /HPF Urine Casts NONE /LPF Urine Mucus NEGATIVE /LPF Urine Culture Indicated YES My Orders Orders - SHEY CARRENO Saline Lock/Iv-Start (08/15/18 18:18) Ns Iv 1000 Ml (Sodium Chloride 0.9%) (08/15/18 18:18) Ondansetron Injection (Zofran Injectio (08/15/18 18:30) Cbc With Automated Diff (08/15/18 18:18) Comprehensive Metabolic Panel (08/15/18 18:18) Hcg,Quantitative (08/15/18 18:18) Ua Culture If Indicated (08/15/18 18:18) Heart Tones (08/15/18 18:18) Ns Iv 1000 Ml (Sodium Chloride 0.9%) (08/15/18 20:00) Ondansetron Injection (Zofran Injectio (08/15/18 20:00) Ondansetron Injection (Zofran Injectio (08/15/18 20:30) Famotidine Injection (Pepcid Injection) (08/15/18 20:23) Promethazine Injection (Phenergan Injec (08/15/18 21:45) Urine Culture (08/15/18 21:31) Ceftriaxone For Iv Use (Rocephin For I (08/15/18 23:00) Ns Iv 1000 Ml (Sodium Chloride 0.9%) (08/15/18 23:00) Medications Given in ED Current Medications Medications Dose Ordered Sig/Min Route Start Time Stop Time Status Last Admin Dose Admin Ceftriaxone Sodium 1000 mg/ Sterile Water 10 ml @ 200 mls/hr ONCE ONCE IV 08/15/18 23:00 08/15/18 23:02 DC 08/15/18 23:39 200 MLS/HR Ondansetron HCl 4 mg ONCE ONCE IVP 08/15/18 18:30 08/15/18 18:31 DC 08/15/18 18:52 4 MG Ondansetron HCl 4 mg ONCE ONCE IVP 08/15/18 20:00 08/15/18 20:01 DC 08/15/18 19:30 4 MG Ondansetron HCl 4 mg ONCE ONCE IVP 08/15/18 20:30 08/15/18 20:31 DC 08/15/18 20:42 4 MG Promethazine HCl 25 mg ONCE ONCE IVP 08/15/18 21:45 08/15/18 21:46 DC 08/15/18 21:41 25 MG Sodium Chloride 1,000 ml @ 1,000 mls/hr Q1H ONCE IV 08/15/18 20:00 08/15/18 20:59 DC 08/15/18 19:30 1,000 MLS/HR Vital Signs/I&O 08/15/18 18:34 Temp 97.6 Pulse 77 Resp 20 B/P (MAP) 117/56 (76) Pulse Ox 98 08/16/18 00:00 Intake Total 2010 ml Balance 2010 ml Capillary Refill : Less Than 3 Seconds Blood Pressure Mean: 76 Departure Communication (Admissions) Time/Spoke to Admitting Phy: 22:49 Dr. Charles graciously accepts patient to her service. Patient seen and evaluated. Initial labs obtained. Patient was given a total of 2 L normal saline bolus, 2 mg IV Zofran, 20 mg IV Pepcid, and 25 mg IV Phenergan with continued nausea and dry heaves. Patient unable to tolerate oral intake. Patient was given 1 g of Rocephin IV in the emergency department. Patient case discussed with Dr. Maty Charles including history, vital signs, and laboratory findings. Dr. Charles graciously accepts patient to her service for IV antibiotics, IV antiemetics, and further evaluation/management. Laboratory findings and plan for admission discussed with the patient. Patient verbalizes understanding and agrees with the treatment plan. Plan for admission discussed with Dr. Mar, he agrees with the plan of care. Impression Primary Impression: Hyperemesis gravidarum with dehydration Additional Impressions: Urinary tract infection Qualified Codes: N30.00 - Acute cystitis without hematuria with 8 completed weeks gestation Disposition: ADMITTED INPATIENT Condition: Stable Admissions Decision to Admit Reason: Admit from ER (General) Decision to Admit/Date: Aug 15, 2018 Time/Decision to Admit Time: 22:40 Departure-Patient Inst. Referrals: ROSA MENJIVAR MD (PCP/Family) Primary Care Physician SHEY CARRENO Aug 15, 2018 18:57
[2018-08-15] MEDS ORDERED: NS IV 1000 ML 1,000 ML IV ONE (20:00)
[2018-08-15] MEDS ORDERED: FAMOTIDINE 20MG/2ML IV (PEPCID) IV STA (20:23)
--- NOTE | 2018-08-15 21:30 | NUR ---
GRACIELAPTMIGUEL A TO GET HEART TONES VIA DOPPLER BUT WAS UNABLE TO CAPTURE. Aime AYALA.
[2018-08-15 21:37] LABS: BILIRUBIN,URINE NEGATIVE (NEGATIVE); CLARITY,URINE SLIGHTLY CLOUDY; COLOR,URINE YELLOW; GLUCOSE, URINE (UA) NEGATIVE (NEGATIVE); KETONES,URINE 4+ (NEGATIVE); LEUKOCYTE ESTERASE ,URINE 3+ (NEGATIVE); NITRITE,URINE NEGATIVE (NEGATIVE); PH,URINE 6 (5-9); PROTEIN,URINE NEGATIVE (NEGATIVE); UROBILINOGEN,URINE NORMAL (NORMAL)
[2018-08-15] MEDS ORDERED: PROMETHAZINE INJ 25 MG/ML (PHENERGAN) AMP IVP ONE (21:45)
[2018-08-15 21:54] LABS: BACTERIA,URINE FEW /HPF
[2018-08-15] MEDS ORDERED: cefTRIAXone FOR IV USE 1,000 MG in WATER (STERILE) FOR INJECTION 10 ML IV ONE (23:00)
--- OUTSIDE RECORDS SUMMARY | 2018-08-16 00:08 | XMS REPORT ---
Author Author JESUS CANTU Organization [facility] Address [address] [place] [address] Care Team Providers Care Developmental Mathematics Instructor Name Role Phone JESUS CANTU Unavailable PROBLEMS Type Condition ICD9-CM Code [id number] Code Onset Dates Condition Status SNOMED Code Problem Contusion of ankle 924.21 Active 79993751 Problem Other malaise and fatigue 780.79 Active 320485872 Problem Unspecified anemia 285.9 Active 261599557 Problem Cellulitis and abscess of unspecified site 682.9 Active 716246873 Problem Intestinal infection due to other organism, NEC 008.8 Active 85882102 Problem Need for prophylactic vaccination and inoculation, Influenza V04.81 Active 709983724 Assessment Tick bite, initial encounter W57.XXXA Jan, Active 75887427 Problem Ingrowing nail 703.0 Active 699806426 Problem Abnormal weight gain 783.1 Active 985686072 Problem Abdominal pain, generalized 789.07 Active 684178388 Problem Pneumonia, organism unspecified 486 Active 312981652 Problem Unspecified otitis media 382.9 Active 75592729 Problem Unspecified infective otitis externa 380.10 Active 89130317 Problem Diarrhea 787.91 Active 38852931 Problem Nausea with vomiting 787.01 Active 26751798 Problem Accident caused by hypodermic needle E920.5 Active Problem Streptococcal sore throat 034.0 Active 80995755 Problem STATE HEP A (ADULT) DX V05.3 Active 394467551 Problem Nausea alone 787.02 Active 244274503 Problem DTAP TEST V06.1 Active Problem Dizziness and giddiness 780.4 Active 162016996 ALLERGIES Substance Reaction Event Type Date Status N.K.D.A. Unknown Non Drug Allergy Jan, Unknown SOCIAL HISTORY No smoking Hx information available PLAN OF CARE VITAL SIGNS Height 60 in 2016-01-26 Weight 150 lbs 2016-01-26 Heart Rate 80 bpm 2016-01-26 Respiratory Rate 16 2016-01-26 BMI 29.29 kg/m2 2016-01-26 Blood pressure systolic 114 mmHg 2016-01-26 Blood pressure diastolic 68 mmHg 2016-01-26 MEDICATIONS Medication Instructions Dosage Frequency Start Date End Date Duration Status Doxycycline Hyclate 100 MG Orally every 12 hrs 1 capsule 12h Jan, Jan, 14 days Active RESULTS No Results PROCEDURES Procedure Date Ordered Related Diagnosis Body Site Office Visit, Est Pt., Level 3 Jan 26, 2016 IMMUNIZATIONS No Known Immunizations
--- OUTSIDE RECORDS SUMMARY | 2018-08-16 00:08 | XMS REPORT ---
Author EMORY Oswald [facility] [employer] Address Unknown Phone Unavailable Care Team Providers Care Icu Nurse Name Role Phone EMORY OLIVARES CP Unavailable Allergies No Known Allergies Problems Problem Type Condition ICD-9 Code Onset Dates Condition Status Problem Dizziness and giddiness 780.4 Active Problem Unspecified anemia 285.9 Active Problem Contusion of ankle 924.21 Active Problem Need for prophylactic vaccination and inoculation, Influenza V04.81 Active Assessment Immunity status testing V72.61 Active Problem Abdominal pain, generalized 789.07 Active Problem Cellulitis and abscess of unspecified site 682.9 Active Problem Abnormal weight gain 783.1 Active Problem Other malaise and fatigue 780.79 Active Problem Pneumonia, organism unspecified 486 Active Problem Ingrowing nail 703.0 Active Problem Nausea with vomiting 787.01 Active Problem Unspecified otitis media 382.9 Active Problem Intestinal infection due to other organism, NEC 008.8 Active Problem Diarrhea 787.91 Active Problem DTAP TEST V06.1 Active Problem Accident caused by hypodermic needle E920.5 Active Problem Unspecified infective otitis externa 380.10 Active Problem Streptococcal sore throat 034.0 Active Problem STATE HEP A (ADULT) DX V05.3 Active Problem Nausea alone 787.02 Active Medications No Known Medications Procedures Procedure Coding System Code Date MUMPS ANTIBODY CPT-4 55051 Jan 16, 2015 RUBEOLA ANTIBODY CPT-4 24213 Jan 16, 2015 RUBELLA ANTIBODY CPT-4 98830 Jan 16, 2015 Results No Known Results Summary Purpose eClinicalWorks Submission
--- OUTSIDE RECORDS SUMMARY | 2018-08-16 00:08 | XMS REPORT ---
Author Author JESUS CANTU Organization [employer] Address Unknown Phone Unavailable Care Team Providers Care Brand Ambassador Name Role Phone JESUS CANTU CP Unavailable Allergies No Known Allergies Problems Problem Type Condition Code Onset Dates Condition Status Problem Dizziness and giddiness 780.4 Active Problem Unspecified anemia 285.9 Active Problem Contusion of ankle 924.21 Active Problem Need for prophylactic vaccination and inoculation, Influenza V04.81 Active Problem Abdominal pain, generalized 789.07 Active [...] alone 787.02 Active Medications No Known Medications Results No Known Results Summary Purpose eClinicalWorks Submission
--- OUTSIDE RECORDS SUMMARY | 2018-08-16 00:08 | XMS REPORT ---
Author Author Migration, Doctor Organization [facility] Address Unknown Phone Unavailable Care Team Providers Care Beef Ribber Name Role Phone Migration, Doctor Unavailable Unavailable PROBLEMS Type Condition ICD9-CM Code OGZ56-UN Code Onset Dates Condition Status SNOMED Code Problem Need for prophylactic vaccination and inoculation, Influenza V04.81 Active 746759239 Problem STATE HEP A (ADULT) DX V05.3 Active 414986835 Problem Contusion of ankle 924.21 Active 60293490 Problem Accident caused by hypodermic needle E920.5 Active 272760679 Problem Diarrhea 787.91 Active 42282648 Problem Abdominal pain, generalized 789.07 Active 681990565 Problem Nausea with vomiting 787.01 Active 60677238 Problem Nausea alone 787.02 Active 191936416 Problem Dizziness and giddiness 780.4 Active 455930122 Problem Ingrowing nail 703.0 Active 477373114 Problem Cellulitis and abscess of unspecified site 682.9 Active 658465777 Problem Streptococcal sore throat 034.0 Active 14910507 Problem Other malaise and fatigue 780.79 Active 989931030 Problem Intestinal infection due to other organism, NEC 008.8 Active 62999441 Problem Abnormal weight gain 783.1 Active 332562323 Problem DTAP TEST V06.1 Active Problem Pneumonia, organism unspecified 486 Active 397081029 Problem Unspecified otitis media 382.9 Active 17853990 Problem Unspecified infective otitis externa 380.10 Active 74920517 Problem Unspecified anemia 285.9 Active 884124977 ALLERGIES No Information ENCOUNTERS Encounter Location Date Diagnosis [facility] [address] [id number] Jan, Tick bite, initial encounter W57.XXXA [facility] [address] [id number] Aug, Labial cyst N90.7 [facility] [address] [place] [address] 16 Feb, 2015 [facility] [address], [place] [address] Feb, [facility] [id number] [id number] 09 Feb, 2015 Family history of breast cancer in first degree relative Z80.3 ; Breast mass, right N63 ; Encounter for routine gynecological examination Z01.419 and Breast cancer screening Z12.39 [facility] [address], [place] [address] 03 Jan, 2015 Immunity status testing V72.61 [facility] [id number] [place] [address] September, Phlebitis 451.9 [facility] [id number] [place] [address] Aug, [facility] [id number] [place] [address] Aug, [facility] [address] [place] [address] Jul, [facility] [id number] [place] [address] Jul, [facility] [address], [place] [address] May, [facility] [address] [place] [address] May, [facility] [address], [place] [address] Apr, [facility] [id number] [place] [address] Apr, [facility] [address] [address] Apr, [facility] [id number] [place] [address] Apr, [facility] [place] [facility] [address] [id number] [place] [address] Mar, [facility] [place] [facility] [address] [id number] [place] [address] Mar, [facility] [place] [facility] [address] [id number] [place] [address] Mar, [facility] [place] [facility] [address] [id number] [place] [address] Feb, [facility] [place] [facility] [address] [id number] [place] [address] Feb, [facility] [place] [facility] [address] [id number] [place] [address] Feb, [facility] [place] [facility] [address] [facility] [id number] [place] [address] Feb, [facility] [place] [facility] [address] [id number] [place] [address] Feb, [facility] [place] [facility] [address] [facility] [id number] [place] [address] Feb, [facility] [place] [facility] [address] [facility] [id number] [place] [address] Jan, [facility] [place] [facility] [address] [id number] [place] [address] Jan, [facility] [place] [facility] [address] [id number] [place] [address] Jan, [facility] [place] [facility] [address] [id number] [place] [address] 18 Jan, 2014 [facility] [place] [facility] [address] [id number] [place] [address] Jan, [facility] [place] [facility] [address] [facility] [id number] [place] [address] Nov, [facility] [place] [facility] [address] [id number] [place] [address] Nov, [facility] [place] [facility] [address] [id number] [place] [address] 6[address] Oct, [facility] [place] [facility] [address] [id number] [place] [address] Oct, [facility] [place] [facility] [address] [id number] [place] [address] September, [facility] [place] [facility] [address] [id number] [place] [address] 6[address] September, [facility] [place] [facility] [address] [id number] [place] [address] September, [facility] [place] [facility] [address] [id number] [place] [address] Aug, [facility] [place] [facility] [address] [id number] [place] [address] Aug, [facility] [place] [facility] [address] [id number] [place] [address] Jul, [facility] [place] [facility] [address] [id number] [place] [address] Jul, [facility] [place] [facility] [address] [id number] [place] [address] Jun, [facility] [place] [facility] [address] [id number] [place] [address] Jun, [facility] [place] [facility] [address] [id number] [place] [address] Jun, [facility] [place] [facility] [address] [id number] [place] [address] Jun, [facility] [place] [facility] [address] [id number] [place] [address] Jun, [facility] [place] [facility] [id number] [place] [address] Jun, [facility] [address], [place] [address] Apr, [facility] [address], [place] [address] Apr, [facility] [address], [place] [address] Feb, [facility] [address], [place] [address] September, [facility] [address] [place] [address]- [address] May, [facility] [address] [place] [address]- [address] May, [facility] [address] [place] [address]- [address] Mar, [facility] [address], [place] [address] Mar, [facility] [address], [place] [address] Nov, [facility] [address], [place] [address] Oct, [facility] [address], [place] [address] Oct, [facility] [address], [place] [address] September, [facility] [address], [place] [address] Mar, [facility] [address] [address] Feb, IMMUNIZATIONS No Known Immunizations SOCIAL HISTORY Never Assessed REASON FOR VISIT EMR-[facility] PLAN OF CARE VITAL SIGNS MEDICATIONS No Known Medications RESULTS No Results PROCEDURES No Known procedures INSTRUCTIONS MEDICATIONS ADMINISTERED No Known Medications MEDICAL (GENERAL) HISTORY Type Description Date Medical History right breast lump for 5 years Last US 2 years ago Surgical History tonsillectomy age 6 Surgical History appendectomy age 8 Surgical History ACL repair- left knee age 16
--- OUTSIDE RECORDS SUMMARY | 2018-08-16 00:08 | XMS REPORT | Clinical Summary ---
Author Author [facility] Organization [facility] Address Unknown Phone Unavailable Care Team Providers Care Hose Mender Name Role Phone Beena Gillette MD Unavailable No Pcp, Na PCP Unavailable Source Comments Some departments are not documenting in the electronic medical record. If you do not see the information that you expected, contact Release of Information in the Health Information Management department at [phone] for further assistance in locating additional records.[facility] Allergies Not on File Medications Not on file Active Problems Not on file Social History Date Tobacco Use Types Packs/Day Years Used Never Assessed Sex Assigned at Date Recorded Not on file Industry Job Start Date Occupation Not on file Not on file Not on file Travel End Travel History Travel Start No recent travel history available. Last Filed Vital Signs Not on file Plan of Treatment Health Maintenance Due Date Last Done Comments PHYSICAL (COMPREHENSIVE) 12/07/1994 EXAM HIV SCREENING 12/07/2002 DTAP/TDAP VACCINES ( - 12/07/2005 Tdap) CERVICAL CANCER SCREENING 12/07/2017 INFLUENZA VACCINE 12/14/2018 Results Not on filefrom Last 3 Months Insurance Type Payer Benefit Subscriber ID Effective Phone Address Plan / Dates Group Indemnity [facility] PPO xxxxxxxx [id number] resent PPO [employer] xxxxxxxxxxxx 2018- OUT OF Present STATE Advance Directives Patient has advance care planning documents on file. For more information, please contact: [address] [place] [address]
--- OUTSIDE RECORDS SUMMARY | 2018-08-16 00:09 | XMS REPORT ---
Author Author JESUS CANTU Organization [employer] Address Unknown Phone Unavailable Care Team Providers Care Rock Breaker Name Role Phone JESUS CANTU CP Unavailable [...] Active Problem Nausea alone 787.02 Active Medications Medication Code System Code Instructions Start Date End Date Status Dosage mily [facility] [address]-50 500 MG Orally 3 times a day Feb 26, 2015 Mar 05, 2015 1 tablet Results No Known Results Summary Purpose [employer] Submission
--- OUTSIDE RECORDS SUMMARY | 2018-08-16 00:10 | XMS REPORT | Continuity of Care Document ---
Author Author [facility] Address Unknown Phone Unavailable Allergies Active Description Code Type Severity Reaction Onset Reported/Identified Relationship to Patient Clinical Status Yes NO KNOWN DRUG ALLERGIES UNKNOWN NO KNOWN DRUG ALLERG Yes No Known Drug Allergies [id number] Drug Allergy Unknown N/A 11/03/2015 Medications Medication Packaging Start Date Stop Date Route Dosage Sig POLY/BACI/NEOM/HC OTIC DROP (CORTISPORIN) drop 05/06/2017 05/06/2017 [id number] Problems Date Dx Coded Attending Type Code Diagnosis Diagnosed By 03/19/2011 EMORY OLIVARES DO 461.9 SINUSITIS ACUTE 03/19/2011 461.9 SINUSITIS ACUTE 03/19/2011 EMORY OLIVARES DO 461.9 SINUSITIS ACUTE 03/19/2011 EMORY OLIVARES DO 461.9 SINUSITIS ACUTE 03/19/2011 KENNY GAFFNEY MD 461.9 SINUSITIS ACUTE 03/19/2011 EMORY OLIVARES DO 461.9 SINUSITIS ACUTE 03/19/2011 EMORY OLIVARES DO 461.9 SINUSITIS ACUTE 03/19/2011 KENNY GAFFNEY MD 461.9 SINUSITIS ACUTE 03/19/2011 EMORY OLIVARES DO 461.9 SINUSITIS ACUTE 03/19/2011 LELAND ABURTO APRN S 461.9 SINUSITIS ACUTE 03/19/2011 EMORY OLIVARES DO K 461.9 SINUSITIS ACUTE 03/19/2011 EMORY OLIVARES DO K 461.9 SINUSITIS ACUTE 03/19/2011 OSCAR CHOPRA APRN 461.9 SINUSITIS ACUTE 03/19/2011 LELAND ABURTO APRN S 461.9 SINUSITIS ACUTE 03/19/2011 461.9 SINUSITIS ACUTE 09/24/2011 EMORY OLIVARES DO 486 PNEUMONIA UNSPECIFIED 09/24/2011 486 PNEUMONIA UNSPECIFIED 09/24/2011 OLIVARES DO, EMORY K 486 PNEUMONIA UNSPECIFIED 09/24/2011 OLIVARES DO, EMORY K 486 PNEUMONIA UNSPECIFIED 09/24/2011 GULSHAN MOTLEY, KENNY 486 PNEUMONIA UNSPECIFIED 09/24/2011 OLIVARES DO, EMORY K 486 PNEUMONIA UNSPECIFIED 09/24/2011 OLIVARES DO, EMORY K 486 PNEUMONIA UNSPECIFIED 09/24/2011 GULSHAN MOTLEY, KENNY 486 PNEUMONIA UNSPECIFIED 09/24/2011 OLIVARES DO, EMORY K 486 PNEUMONIA UNSPECIFIED 09/24/2011 LAMONTE ELECTRONIC NEWS GATHERING CAMERA PERSON, LELAND S 486 PNEUMONIA UNSPECIFIED 09/24/2011 OLIVARES DO, EMORY K 486 PNEUMONIA UNSPECIFIED 09/24/2011 OLIVARES DO, EMORY K 486 PNEUMONIA UNSPECIFIED 09/24/2011 KEYSHA ELECTRONIC NEWS GATHERING CAMERA PERSON, OSCAR R 486 PNEUMONIA UNSPECIFIED 09/24/2011 LAMONTE ELECTRONIC NEWS GATHERING CAMERA PERSON, LELAND S 486 PNEUMONIA UNSPECIFIED 09/24/2011 486 PNEUMONIA UNSPECIFIED 11/10/2011 OLIVARES DO, EMORY K 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 11/10/2011 OLIVARES DO, EMORY K V05.3 HEP B (ADULT) DX 11/10/2011 OLIVARES DO, EMORY K V06.1 TDAP DX 11/10/2011 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 11/10/2011 V05.3 HEP B (ADULT) DX 11/10/2011 V06.1 TDAP DX 11/10/2011 OLIVARES DO, EMORY K 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 11/10/2011 OLIVARES DO, EMORY K V05.3 HEP B (ADULT) DX 11/10/2011 OLIVARES DO, EMORY K V06.1 TDAP DX 11/10/2011 OLIVARES DO, EMORY K 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 11/10/2011 OLIVARES DO, EMORY K V05.3 HEP B (ADULT) DX 11/10/2011 OLIVARES DO, EMORY K V06.1 TDAP DX 11/10/2011 KENNY GAFFNEY MD 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 11/10/2011 KENNY GAFFNEY MD V05.3 HEP B (ADULT) DX 11/10/2011 KENNY GAFFNEY MD V06.1 TDAP DX 11/10/2011 OLIVARES DO, EMORY K 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 11/10/2011 OLIVARES DO, EMORY K V05.3 HEP B (ADULT) DX 11/10/2011 OLIVARES DO, EMORY K V06.1 TDAP DX 11/10/2011 OLIVARES DO, EMORY K 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 11/10/2011 OLIVARES DO, EMORY K V05.3 HEP B (ADULT) DX 11/10/2011 OLIVARES DO, EMORY K V06.1 TDAP DX 11/10/2011 KENNY GAFFNEY MD 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 11/10/2011 KENNY GAFFNEY MD V05.3 HEP B (ADULT) DX 11/10/2011 KENNY GAFFNEY MD V06.1 TDAP DX 11/10/2011 OLIVARES DO, EMORY K 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 11/10/2011 OLIVARES DO, EMORY K V05.3 HEP B (ADULT) DX 11/10/2011 OLIVARES DO, EMORY K V06.1 TDAP DX 11/10/2011 LELAND ABURTO APRN S 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 11/10/2011 LELAND ABURTO APRN S V05.3 HEP B (ADULT) DX 11/10/2011 LELAND ABURTO APRN S V06.1 TDAP DX 11/10/2011 OLIVARES DO, EMORY K 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 11/10/2011 OLIVARES DO, EMORY K V05.3 HEP B (ADULT) DX 11/10/2011 OLIVARES DO, EMORY K V06.1 TDAP DX 11/10/2011 OLIVARES DO, EMORY K 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 11/10/2011 OLIVARES DO, EMORY K V05.3 HEP B (ADULT) DX 11/10/2011 OLIVARES DO, EMORY K V06.1 TDAP DX 11/10/2011 JAVY CHOPRA APRNINA R 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 11/10/2011 KEYSHA KUMAR OSCAR R V05.3 HEP B (ADULT) DX 11/10/2011 KEYSHA KUMAR OSCAR R V06.1 TDAP DX 11/10/2011 LELAND ABURTO APRN S 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 11/10/2011 LAMONTE KUMAR LELAND S V05.3 HEP B (ADULT) DX 11/10/2011 LAMONTE KUMAR LELAND S V06.1 TDAP DX 11/10/2011 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 11/10/2011 V05.3 HEP B (ADULT) DX 11/10/2011 V06.1 TDAP DX 03/20/2012 OLIVARES DO, EMORY K V04.81 FLU DX (3 YRS AND ABOVE, IM) 03/20/2012 V04.81 FLU DX (3 YRS AND ABOVE, IM) 03/20/2012 OLIVARES DO, EMORY K V04.81 FLU DX (3 YRS AND ABOVE, IM) 03/20/2012 OLIVARES DO, EMORY K V04.81 FLU DX (3 YRS AND ABOVE, IM) 03/20/2012 KENNY GAFFNEY MD V04.81 FLU DX (3 YRS AND ABOVE, IM) 03/20/2012 OLIVARES DO, EMORY K V04.81 FLU DX (3 YRS AND ABOVE, IM) 03/20/2012 OLIVARES DO, EMORY K V04.81 FLU DX (3 YRS AND ABOVE, IM) 03/20/2012 KENNY GAFFNEY MD V04.81 FLU DX (3 YRS AND ABOVE, IM) 03/20/2012 OLIVARES DO, EMORY K V04.81 FLU DX (3 YRS AND ABOVE, IM) 03/20/2012 LELAND ABURTO APRN S V04.81 FLU DX (3 YRS AND ABOVE, IM) 03/20/2012 OLIVARES DO, EMORY K V04.81 FLU DX (3 YRS AND ABOVE, IM) 03/20/2012 OLIVARES DO, EMORY K V04.81 FLU DX (3 YRS AND ABOVE, IM) 03/20/2012 OSCAR CHOPRA APRN R V04.81 FLU DX (3 YRS AND ABOVE, IM) 03/20/2012 LELAND ABURTO APRN S V04.81 FLU DX (3 YRS AND ABOVE, IM) 03/20/2012 V04.81 FLU DX (3 YRS AND ABOVE, IM) 06/12/2012 EMORY OLIVARES DO K 380.10 INFECTIVE OTITIS EXTERNA UNSPECIFIED 06/12/2012 OLIVARES DO, EMORY K 382.9 UNSPECIFIED OTITIS MEDIA 06/12/2012 380.10 INFECTIVE OTITIS EXTERNA UNSPECIFIED 06/12/2012 382.9 UNSPECIFIED OTITIS MEDIA 06/12/2012 OLIVARES DO, EMORY K 380.10 INFECTIVE OTITIS EXTERNA UNSPECIFIED 06/12/2012 OLIVARES DO, EMORY K 382.9 UNSPECIFIED OTITIS MEDIA 06/12/2012 OLIVARES DO, EMORY K 380.10 INFECTIVE OTITIS EXTERNA UNSPECIFIED 06/12/2012 OLIVARES DO, EMORY K 382.9 UNSPECIFIED OTITIS MEDIA 06/12/2012 KENNY GAFFNEY MD 380.10 INFECTIVE OTITIS EXTERNA UNSPECIFIED 06/12/2012 KENNY GAFFNEY MD 382.9 UNSPECIFIED OTITIS MEDIA 06/12/2012 OLIVARES DO, EMORY K 380.10 INFECTIVE OTITIS EXTERNA UNSPECIFIED 06/12/2012 OLIVARES DO, EMORY K 382.9 UNSPECIFIED OTITIS MEDIA 06/12/2012 OLIVARES DO, EMORY K 380.10 INFECTIVE OTITIS EXTERNA UNSPECIFIED 06/12/2012 OLIVARES DO, EMORY K 382.9 UNSPECIFIED OTITIS MEDIA 06/12/2012 KENNY GAFFNEY MD 380.10 INFECTIVE OTITIS EXTERNA UNSPECIFIED 06/12/2012 KENNY GAFFNEY MD 382.9 UNSPECIFIED OTITIS MEDIA 06/12/2012 OLIVARES DO, EMORY K 380.10 INFECTIVE OTITIS EXTERNA UNSPECIFIED 06/12/2012 OLIVARES DO, EMORY K 382.9 UNSPECIFIED OTITIS MEDIA 06/12/2012 LAM[employer]TE ELECTRONIC NEWS GATHERING CAMERA PERSON, LELAND S 380.10 INFECTIVE OTITIS EXTERNA UNSPECIFIED 06/12/2012 LAMONTE ELECTRONIC NEWS GATHERING CAMERA PERSON, LELAND S 382.9 UNSPECIFIED OTITIS MEDIA 06/12/2012 OLIVARES DO, EMORY K 380.10 INFECTIVE OTITIS EXTERNA UNSPECIFIED 06/12/2012 OLIVARES DO, EMORY K 382.9 UNSPECIFIED OTITIS MEDIA 06/12/2012 OLIVARES DO, EMORY K 380.10 INFECTIVE OTITIS EXTERNA UNSPECIFIED 06/12/2012 OLIVARES DO, EMORY K 382.9 UNSPECIFIED OTITIS MEDIA 06/12/2012 KEYSHA ELECTRONIC NEWS GATHERING CAMERA PERSON, OSCAR R 380.10 INFECTIVE OTITIS EXTERNA UNSPECIFIED 06/12/2012 KEYSHA ELECTRONIC NEWS GATHERING CAMERA PERSON, OSCAR R 382.9 UNSPECIFIED OTITIS MEDIA 06/12/2012 LAMONTE ELECTRONIC NEWS GATHERING CAMERA PERSON, LELAND S 380.10 INFECTIVE OTITIS EXTERNA UNSPECIFIED 06/12/2012 LAMONTE ELECTRONIC NEWS GATHERING CAMERA PERSON, LELAND S 382.9 UNSPECIFIED OTITIS MEDIA 09/14/2012 682.9 CELLULITIS AND ABSCESS OF UNSPECIFIED SITES 09/14/2012 OLIVARES DO, EMORY K 682.9 CELLULITIS AND ABSCESS OF UNSPECIFIED SITES 09/14/2012 OLIVARES DO, EMORY K 682.9 CELLULITIS AND ABSCESS OF UNSPECIFIED SITES 09/14/2012 KENNY GAFFNEY MD 682.9 CELLULITIS AND ABSCESS OF UNSPECIFIED SITES 09/14/2012 OLIVARES DO, EMORY K 682.9 CELLULITIS AND ABSCESS OF UNSPECIFIED SITES 09/14/2012 OLIVARES DO, EMORY K 682.9 CELLULITIS AND ABSCESS OF UNSPECIFIED SITES 09/14/2012 KENNY GAFFNEY MD 682.9 CELLULITIS AND ABSCESS OF UNSPECIFIED SITES 09/14/2012 OLIVARES DO, EMORY K 682.9 CELLULITIS AND ABSCESS OF UNSPECIFIED SITES 09/14/2012 ROSE ABURTO APRNA S 682.9 CELLULITIS AND ABSCESS OF UNSPECIFIED SITES 09/14/2012 OLIVARES DO, EMORY K 682.9 CELLULITIS AND ABSCESS OF UNSPECIFIED SITES 09/14/2012 OLIVARES DO, EMORY K 682.9 CELLULITIS AND ABSCESS OF UNSPECIFIED SITES 09/14/2012 KEYSHA ELECTRONIC NEWS GATHERING CAMERA PERSON, OSCAR R 682.9 CELLULITIS AND ABSCESS OF UNSPECIFIED SITES 09/14/2012 LAMONTE ELECT[employer] NEWS GATHERING CAMERA PERSONROSE HarmonA S 682.9 CELLULITIS AND ABSCESS OF UNSPECIFIED SITES 05/15/2013 OLIVARES DO EMORY K 008.8 INTESTINAL INFECTION DUE TO OTHER ORGANISM NOT ELSEWHERE CLASSIFIED 05/15/2013 JACQUIE OLIVARES DOA K 787.01 NAUSEA WITH VOMITING 05/15/2013 JACQUIE OLIVARES DOA K 787.91 DIARRHEA 05/15/2013 KENNY GAFFNEY MD 008.8 INTESTINAL INFECTION DUE TO OTHER ORGANISM NOT ELSEWHERE CLASSIFIED 05/15/2013 KENNY GAFFNEY MD7.01 NAUSEA WITH VOMITING 05/15/2013 KENNY GAFFNEY MD.91 DIARRHEA 05/15/2013 OLIVARES EMORY RAZO K 008.8 INTESTINAL INFECTION DUE TO OTHER ORGANISM NOT ELSEWHERE CLASSIFIED 05/15/2013 ELISE RAZO EMORY K 787.01 NAUSEA WITH VOMITING 05/15/2013 OLIVARES JACQUIE RAZOA K 787.91 DIARRHEA 05/15/2013 OLIVARES DO EMORY K 008.8 INTESTINAL INFECTION DUE TO OTHER ORGANISM NOT ELSEWHERE CLASSIFIED 05/15/2013 OLIVARES DO, EMORY K 787.01 NAUSEA WITH VOMITING 05/15/2013 OLIVARES DO, EMORY K 787.91 DIARRHEA 05/15/2013 KENNY GAFFNEY MD 008.8 INTESTINAL INFECTION DUE TO OTHER ORGANISM NOT ELSEWHERE CLASSIFIED 05/15/2013 KENNY GAFFNEY MD 787.01 NAUSEA WITH VOMITING 05/15/2013 KENNY GAFFNEY MD 787.91 DIARRHEA 05/15/2013 OLIVARES DO, EMORY K 008.8 INTESTINAL INFECTION DUE TO OTHER ORGANISM NOT ELSEWHERE CLASSIFIED 05/15/2013 OLIVARES DO, EMORY K 787.01 NAUSEA WITH VOMITING 05/15/2013 OLIVARES DO, EMORY K 787.91 DIARRHEA 05/15/2013 LAMONTE ONOFREN LELAND S 008.8 INTESTINAL INFECTION DUE TO OTHER ORGANISM NOT ELSEWHERE CLASSIFIED 05/15/2013 LAMONTE ELECTRONIC NEWS GATHERING CAMERA PERSON, LELAND S 787.01 NAUSEA WITH VOMITING 05/15/2013 LAMONTE ONOFREN LELAND S 787.91 DIARRHEA 05/15/2013 OLIVARES DO, EMORY K 008.8 INTESTINAL INFECTION DUE TO OTHER ORGANISM NOT ELSEWHERE CLASSIFIED 05/15/2013 OLIVARES DO, EMORY K 787.01 NAUSEA WITH VOMITING 05/15/2013 OLIVARES DO, EMORY K 787.91 DIARRHEA 05/15/2013 OLIVARES DO, EMORY K 008.8 INTESTINAL INFECTION DUE TO OTHER ORGANISM NOT ELSEWHERE CLASSIFIED 05/15/2013 OLIVARES DO, EMORY K 787.01 NAUSEA WITH VOMITING 05/15/2013 OLIVARES DO, EMORY K 787.91 DIARRHEA 05/15/2013 KEYSHA ONOFREN OSCAR R 008.8 INTESTINAL INFECTION DUE TO OTHER ORGANISM NOT ELSEWHERE CLASSIFIED 05/15/2013 KEYSHA ELECTRONIC NEWS GATHERING CAMERA PERSON, OSCAR R 787.01 NAUSEA WITH VOMITING 05/15/2013 KEYSHA ELECTRONIC NEWS GATHERING CAMERA PERSON, OSCRA R 787.91 DIARRHEA 05/15/2013 LAMONTE ELECTRONIC NEWS GATHERING CAMERA PERSON LELAND S 008.8 INTESTINAL INFECTION DUE TO OTHER ORGANISM NOT ELSEWHERE CLASSIFIED 05/15/2013 LAMONTE ELECTRONIC NEWS GATHERING CAMERA PERSON LELAND S 787.01 NAUSEA WITH VOMITING 05/15/2013 LAMONTE ELECTRONIC NEWS GATHERING CAMERA PERSON LELAND S 787.91 DIARRHEA 08/08/2013 OLIVARES DO, EMORY K 034.0 STREP THROAT 08/08/2013 OLIVARES DO, EMORY K 034.0 STREP THROAT 08/08/2013 KENNY GAFFNEY MD 034.0 STREP THROAT 08/08/2013 OLIVARES DO, EMORY K 034.0 STREP THROAT 08/08/2013 LAMONTE KUMAR LELAND S 034.0 STREP THROAT 08/08/2013 OLIVARES DO, EMORY K 034.0 STREP THROAT 08/08/2013 OLIVARES DO, EMORY K 034.0 STREP THROAT 08/08/2013 KEYSHA KUMAR, OSCAR R 034.0 STREP THROAT 08/08/2013 LAMONTE KUMAR, LELAND S 034.0 STREP THROAT 10/26/2013 OLIVARES DO, EMORY K 703.0 INGROWING NAIL 10/26/2013 KENNY GAFFNEY MD 703.0 INGROWING NAIL 10/26/2013 OLIVARES DO, EMORY K 703.0 INGROWING NAIL 10/26/2013 LAMONTE KUMAR, LELAND S 703.0 INGROWING NAIL 10/26/2013 OLIVARES DO, EMORY K 703.0 INGROWING NAIL 10/26/2013 OLIVARES DO, EMORY K 703.0 INGROWING NAIL 10/26/2013 KEYSHA KUMAR, OSCAR R 703.0 INGROWING NAIL 10/26/2013 LAMONTE KUMAR, LELAND S 703.0 INGROWING NAIL 11/20/2013 GULSHAN MOTLEY, KENNY 789.07 ABDOMINAL PAIN GENERALIZED 11/20/2013 OLIVARES DO, EMORY K 789.07 ABDOMINAL PAIN GENERALIZED 11/20/2013 DANIEL ABURTO APRNNDA S 789.07 ABDOMINAL PAIN GENERALIZED 11/20/2013 OLIVARES DO, EMORY K 789.07 ABDOMINAL PAIN GENERALIZED 11/20/2013 OLIVARES DO, EMORY K 789.07 ABDOMINAL PAIN GENERALIZED 11/20/2013 KEYSHA KUMAR OSCAR R 789.07 ABDOMINAL PAIN GENERALIZED 11/20/2013 LAMONTE KUMAR LELAND S 789.07 ABDOMINAL PAIN GENERALIZED 01/31/2014 OLIVARES DO, EMORY K 285.9 ANEMIA 01/31/2014 OLIVARES DO, EMORY K 780.79 FATIGUE 01/31/2014 OLIVARES DO, EMORY K 783.1 ABNORMAL WEIGHT GAIN 01/31/2014 DANIEL ABURTO APRNNDA S 285.9 ANEMIA 01/31/2014 DANIEL ABURTO APRNNDA S 780.79 FATIGUE 01/31/2014 ROSE ABURTO APRNA S 783.1 ABNORMAL WEIGHT GAIN 01/31/2014 OLIVARES DO, EMORY K 285.9 ANEMIA 01/31/2014 OLIVARES DO, EMORY K 780.79 FATIGUE 01/31/2014 OLIVARES DO, EMORY K 783.1 ABNORMAL WEIGHT GAIN 01/31/2014 OLIVARES DO, EMORY K 285.9 ANEMIA 01/31/2014 OLIVARES DO, EMORY K 780.79 FATIGUE 01/31/2014 OLIVARES DO, EMORY K 783.1 ABNORMAL WEIGHT GAIN 01/31/2014 KEYSHA KUMAR OSCAR R 285.9 ANEMIA 01/31/2014 KEYSHA KUMAR OSCAR R 780.79 FATIGUE 01/31/2014 KEYSHA KUMAR OSCAR R 783.1 ABNORMAL WEIGHT GAIN 01/31/2014 ROSE ABURTO APRNA S 285.9 ANEMIA 01/31/2014 LELAND ABURTO APRN S 780.79 FATIGUE 01/31/2014 LELAND ABURTO APRN S 783.1 ABNORMAL WEIGHT GAIN 04/08/2014 OLIVARES DO, EMORY K 780.4 DIZZINESS AND VERTIGO 04/08/2014 OLIVARES DO, EMORY K 787.02 NAUSEA ALONE 04/08/2014 OLIVARES DO, EMORY K 780.4 DIZZINESS AND VERTIGO 04/08/2014 OLIVARES DO, EMORY K 787.02 NAUSEA ALONE 04/08/2014 JAVY CHOPRA APRNINA R 780.4 DIZZINESS AND VERTIGO 04/08/2014 JAVY CHOPRA APRNINA R 787.02 NAUSEA ALONE 04/08/2014 LELAND ABURTO APRN S 780.4 DIZZINESS AND VERTIGO 04/08/2014 LELAND ABURTO APRN S 787.02 NAUSEA ALONE 06/05/2014 OSCAR CHOPRA APRN R 924.21 CONTUSION OF ANKLE 06/05/2014 LELAND ABURTO APRN S 924.21 CONTUSION OF ANKLE 08/23/2014 OSCAR CHOPRA APRN R V70.0 EXAM - ROUTINE H&P 08/23/2014 LELAND ABURTO APRN S V70.0 EXAM - ROUTINE H&P 11/03/2015 JESUS CANTU PUTTY MIXER AND APPLIER Ot N63 UNSPECIFIED LUMP IN BREAST 11/03/2015 RAJOTTE, JESUS A PUTTY MIXER AND APPLIER Ot Z80.3 FAMILY HISTORY OF MALIGNANT NEOPLASM OF 11/03/2015 JESUS CANTU A PUTTY MIXER AND APPLIER Ot N63 UNSPECIFIED LUMP IN BREAST 11/03/2015 RAFAEL MOTLEY, BEHZAD T Ot 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 11/03/2015 RAFAEL MOTLEY, BEHZAD T Ot M54.5 LOW BACK PAIN 11/03/2015 RAFAEL MOTLEY, BEHZAD T Ot N83.20 UNSPECIFIED OVARIAN CYSTS 11/03/2015 RAFAEL MOTLEY, BEHZAD T Ot R10.30 LOWER ABDOMINAL PAIN, UNSPECIFIED 11/04/2015 RAFAEL MOTLEY, BEHZAD T Ot 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 11/04/2015 RAFAEL MOTLEY, BEHZAD T Ot M54.5 LOW BACK PAIN 11/04/2015 RAFAEL MOTLEY, BEHZAD T Ot N83.20 UNSPECIFIED OVARIAN CYSTS 11/04/2015 RAFAEL MOTLEY, BEHZAD T Ot R10.30 LOWER ABDOMINAL PAIN, UNSPECIFIED 01/12/2016 JESUS CANTU A PUTTY MIXER AND APPLIER Ot N63 UNSPECIFIED LUMP IN BREAST 01/12/2016 LAISHA CANTUYL A PUTTY MIXER AND APPLIER Ot Z80.3 FAMILY HISTORY OF MALIGNANT NEOPLASM OF 01/12/2016 JESUS CANTU A PUTTY MIXER AND APPLIER Ot N63 UNSPECIFIED LUMP IN BREAST 04/05/2016 ALONDRA JESUS A PUTTY MIXER AND APPLIER Ot N63 UNSPECIFIED LUMP IN BREAST 04/05/2016 JESUS CANTU A PUTTY MIXER AND APPLIER Ot Z80.3 FAMILY HISTORY OF MALIGNANT NEOPLASM OF 04/05/2016 LAISHA CANTUYL A PUTTY MIXER AND APPLIER Ot N63 UNSPECIFIED LUMP IN BREAST 04/07/2016 DENISE ACOSTA MD Ot Z32.00 ENCOUNTER FOR TEST, RESULT UNK 04/07/2016 DENISE ACOSTA MD Ot Z32.01 ENCOUNTER FOR TEST, RESULT POS 04/13/2016 DENISE ACOSTA MD Ot O20.0 THREATENED 04/13/2016 DENISE ACOSTA MD Ot O20.0 THREATENED 04/21/2016 DENISE ACOSTA MD Ot O03.4 INCOMPLETE SPONTANEOUS WITHOUT 04/30/2016 DENISE ACOSTA MD Ot O03.4 INCOMPLETE SPONTANEOUS WITHOUT 06/10/2016 DENISE ACOSTA MD Ot O09.811 SUPRVSN OF PREG RSLT FROM ASSISTED REPRO 06/10/2016 DENISE ACOSTA MD Ot O20.0 THREATENED 06/25/2016 CIPRIANOESELAISHA EsparzaYL A PUTTY MIXER AND APPLIER Ot N63 UNSPECIFIED LUMP IN BREAST 06/25/2016 ALONDRALAISHAYL A PUTTY MIXER AND APPLIER Ot Z80.3 FAMILY HISTORY OF MALIGNANT NEOPLASM OF 06/25/2016 CIPRIANOOTTLAISHA EsparzaYL A PUTTY MIXER AND APPLIER Ot N63 UNSPECIFIED LUMP IN BREAST 06/25/2016 DENISE ACOSTA MD Ot Z32.00 ENCOUNTER FOR TEST, RESULT UNK 06/25/2016 DENISE ACOSTA MD Ot Z32.01 ENCOUNTER FOR TEST, RESULT POS 06/25/2016 DENISE ACOSTA MD Ot O09.811 SUPRVSN OF PREG RSLT FROM ASSISTED REPRO 06/25/2016 DENISE ACOSTA MD Ot O20.0 THREATENED 06/25/2016 DENISE ACOSTA MD Ot O03.4 INCOMPLETE SPONTANEOUS WITHOUT 06/25/2016 DENISE ACOSTA MD Ot O03.4 INCOMPLETE SPONTANEOUS WITHOUT 06/29/2016 DENISE ACOSTA MD Ot Z32.01 ENCOUNTER FOR TEST, RESULT POS 07/06/2016 DENISE ACOSTA MD Ot O20.0 THREATENED 07/15/2016 DENISE ACOSTA MD Ot O03.4 INCOMPLETE SPONTANEOUS WITHOUT 07/15/2016 DENISE ACOSTA MD Ot O03.4 INCOMPLETE SPONTANEOUS WITHOUT 08/04/2016 DENISE ACOSTA MD Ot O03.4 INCOMPLETE SPONTANEOUS WITHOUT 09/21/2016 ALONDRALAISHAYL A PUTTY MIXER AND APPLIER Ot N63 UNSPECIFIED LUMP IN BREAST 09/21/2016 ALONDRALAISHAYL A PUTTY MIXER AND APPLIER Ot Z80.3 FAMILY HISTORY OF MALIGNANT NEOPLASM OF 09/21/2016 ALONDRALAISHAYL A PUTTY MIXER AND APPLIER Ot N63 UNSPECIFIED LUMP IN BREAST 09/21/2016 DENISE ACOSTA MD Ot Z32.00 ENCOUNTER FOR TEST, RESULT UNK 09/21/2016 DENISE ACOSTA MD Ot Z32.01 ENCOUNTER FOR TEST, RESULT POS 09/21/2016 DENISE ACOSTA MD Ot O09.811 SUPRVSN OF PREG RSLT FROM ASSISTED REPRO 09/21/2016 DENISE ACOSTA MD A Ot O20.0 THREATENED 09/21/2016 DENISE ACOSTA MD Ot O03.4 INCOMPLETE SPONTANEOUS WITHOUT 09/21/2016 DENISE ACOSTA MD A Ot O03.4 INCOMPLETE SPONTANEOUS WITHOUT 09/21/2016 DENISE ACOSTA MD A Ot Z32.00 ENCOUNTER FOR TEST, RESULT UNK 09/21/2016 DENISE ACOSTA MD Ot Z32.01 ENCOUNTER FOR TEST, RESULT POS 09/21/2016 DENISE ACOSTA MD A Ot O20.0 THREATENED 09/21/2016 DENISE ACOSTA MD Ot O03.4 INCOMPLETE SPONTANEOUS WITHOUT 09/28/2016 Ot Z32.01 ENCOUNTER FOR TEST, RESULT POS 09/28/2016 Ot Z32.01 ENCOUNTER FOR TEST, RESULT POS 05/06/2017 Khadar Cobb 380.22 OTHER ACUTE OTITIS EXTERNA 05/06/2017 Khadar Cobb H60.503 UNSPECIFIED ACUTE NONINFECTIVE OTITIS EXTERNA, BILATERAL 06/07/2017 ALONDRA, JESUS A PUTTY MIXER AND APPLIER Ot N63 UNSPECIFIED LUMP IN BREAST 06/07/2017 ALONDRA JESUS A PUTTY MIXER AND APPLIER Ot Z80.3 FAMILY HISTORY OF MALIGNANT NEOPLASM OF 06/07/2017 ALONDRA, JESUS A PUTTY MIXER AND APPLIER Ot N63 UNSPECIFIED LUMP IN BREAST 06/07/2017 DENISE ACOSTA MD Ot Z32.00 ENCOUNTER FOR TEST, RESULT UNK 06/07/2017 DENISE ACOSTA MD Ot Z32.01 ENCOUNTER FOR TEST, RESULT POS 06/07/2017 DENISE ACOSTA MD Ot O09.811 SUPRVSN OF PREG RSLT FROM ASSISTED REPRO 06/07/2017 DENISE ACOSTA MD Ot O20.0 THREATENED 06/07/2017 DENISE ACOSTA MD Ot O03.4 INCOMPLETE SPONTANEOUS WITHOUT 06/07/2017 DENISE ACOSTA MD Ot O03.4 INCOMPLETE SPONTANEOUS WITHOUT 06/07/2017 DENISE ACOSTA MD Ot Z32.00 ENCOUNTER FOR TEST, RESULT UNK 06/07/2017 DENISE ACOSTA MD Ot Z32.01 ENCOUNTER FOR TEST, RESULT POS 06/07/2017 DENISE ACOSTA MD Ot O20.0 THREATENED 06/07/2017 ACOSTA MD, DENISE A Ot O03.4 INCOMPLETE SPONTANEOUS WITHOUT 06/07/2017 DENISE ACOSTA MD Ot Z32.00 ENCOUNTER FOR TEST, RESULT UNK 06/07/2017 Ot Z32.01 ENCOUNTER FOR TEST, RESULT POS 10/14/2017 JESUS CANTU A PUTTY MIXER AND APPLIER Ot N63 UNSPECIFIED LUMP IN BREAST 10/14/2017 RAJOTTLAISHA EsparzaYL A PUTTY MIXER AND APPLIER Ot Z80.3 FAMILY HISTORY OF MALIGNANT NEOPLASM OF 10/14/2017 CIPRIANOOTTIsaias JESUS A PUTTY MIXER AND APPLIER Ot N63 UNSPECIFIED LUMP IN BREAST 10/14/2017 DENISE ACOSTA MD A Ot Z32.00 ENCOUNTER FOR TEST, RESULT UNK 10/14/2017 DENISE ACOSTA MD Ot Z32.01 ENCOUNTER FOR TEST, RESULT POS 10/14/2017 DENISE ACOSTA MD Ot O09.811 SUPRVSN OF PREG RSLT FROM ASSISTED REPRO 10/14/2017 DENISE ACOSTA MD Ot O20.0 THREATENED 10/14/2017 DENISE ACOSTA MD Ot O03.4 INCOMPLETE SPONTANEOUS WITHOUT 10/14/2017 DENISE ACOSTA MD Ot O03.4 INCOMPLETE SPONTANEOUS WITHOUT 10/14/2017 DENISE ACOSTA MD Ot Z32.00 ENCOUNTER FOR TEST, RESULT UNK 10/14/2017 DENISE ACOSTA MD Ot Z32.01 ENCOUNTER FOR TEST, RESULT POS 10/14/2017 DENISE ACOSTA MD Ot O20.0 THREATENED 10/14/2017 DENISE ACOSTA MD Ot O03.4 INCOMPLETE SPONTANEOUS WITHOUT 10/14/2017 DENISE ACOSTA MD Ot Z32.00 ENCOUNTER FOR TEST, RESULT UNK 10/14/2017 Ot Z32.01 ENCOUNTER FOR TEST, RESULT POS 11/17/2017 JESUS CANTU A PUTTY MIXER AND APPLIER Ot N63 UNSPECIFIED LUMP IN BREAST 11/17/2017 RAJOTTE JESUS A PUTTY MIXER AND APPLIER Ot Z80.3 FAMILY HISTORY OF MALIGNANT NEOPLASM OF 11/17/2017 LAISHA CANTUYL A PUTTY MIXER AND APPLIER Ot N63 UNSPECIFIED LUMP IN BREAST 11/17/2017 DENISE ACOSTA MD Ot Z32.00 ENCOUNTER FOR TEST, RESULT UNK 11/17/2017 DENISE ACOSTA MD Ot Z32.01 ENCOUNTER FOR TEST, RESULT POS 11/17/2017 DENISE ACOSTA MD Ot O09.811 SUPRVSN OF PREG RSLT FROM ASSISTED REPRO 11/17/2017 DENISE ACOSTA MD Ot O20.0 THREATENED 11/17/2017 DENISE ACOSTA MD Ot O03.4 INCOMPLETE SPONTANEOUS WITHOUT 11/17/2017 DENISE ACOSTA MD A Ot O03.4 INCOMPLETE SPONTANEOUS WITHOUT 11/17/2017 DENISE ACOSTA MD A Ot Z32.00 ENCOUNTER FOR TEST, RESULT UNK 11/17/2017 DENISE ACOSTA MD Ot Z32.01 ENCOUNTER FOR TEST, RESULT POS 11/17/2017 DENISE ACOSTA MD Ot O20.0 THREATENED 11/17/2017 DENISE ACOSTA MD Ot O03.4 INCOMPLETE SPONTANEOUS WITHOUT 11/17/2017 DENISE ACOSTA MD Ot Z32.00 ENCOUNTER FOR TEST, RESULT UNK 11/17/2017 Ot Z32.01 ENCOUNTER FOR TEST, RESULT POS 01/24/2018 ALONDRAJESUS A PUTTY MIXER AND APPLIER Ot N63 UNSPECIFIED LUMP IN BREAST 01/24/2018 LAISHA CANTUYL A PUTTY MIXER AND APPLIER Ot Z80.3 FAMILY HISTORY OF MALIGNANT NEOPLASM OF 01/24/2018 ALONDRALAISHAYL A PUTTY MIXER AND APPLIER Ot N63 UNSPECIFIED LUMP IN BREAST 01/24/2018 DENISE ACOSTA MD Ot Z32.00 ENCOUNTER FOR TEST, RESULT UNK 01/24/2018 DENISE ACOSTA MD Ot Z32.01 ENCOUNTER FOR TEST, RESULT POS 01/24/2018 DENISE ACOSTA MD Ot O09.811 SUPRVSN OF PREG RSLT FROM ASSISTED REPRO 01/24/2018 DENISE ACOSTA MD Ot O20.0 THREATENED 01/24/2018 DENISE ACOSTA MD Ot O03.4 INCOMPLETE SPONTANEOUS WITHOUT 01/24/2018 DENISE ACOSTA MD Ot O03.4 INCOMPLETE SPONTANEOUS WITHOUT 01/24/2018 DENISE ACOSTA MD Ot Z32.00 ENCOUNTER FOR TEST, RESULT UNK 01/24/2018 DENISE ACOSTA MD Ot Z32.01 ENCOUNTER FOR TEST, RESULT POS 01/24/2018 DENISE ACOSTA MD Ot O20.0 THREATENED 01/24/2018 DENISE ACOSTA MD Ot O03.4 INCOMPLETE SPONTANEOUS WITHOUT 01/24/2018 DENISE ACOSTA MD Ot Z32.00 ENCOUNTER FOR TEST, RESULT UNK 01/24/2018 Ot Z32.01 ENCOUNTER FOR TEST, RESULT POS 02/02/2018 JESUS CANTU PUTTY MIXER AND APPLIER Ot N63 UNSPECIFIED LUMP IN BREAST 02/02/2018 JESUS CANTU PUTTY MIXER AND APPLIER Ot Z80.3 FAMILY HISTORY OF MALIGNANT NEOPLASM OF 02/02/2018 JESUS CANTU PUTTY MIXER AND APPLIER Ot N63 UNSPECIFIED LUMP IN BREAST 02/02/2018 DENISE ACOSTA MD Ot Z32.00 ENCOUNTER FOR TEST, RESULT UNK 02/02/2018 DENISE ACOSTA MD Ot Z32.01 ENCOUNTER FOR TEST, RESULT POS 02/02/2018 DENISE ACOSTA MD Ot O09.811 SUPRVSN OF PREG RSLT FROM ASSISTED REPRO 02/02/2018 DENISE ACOSTA MD Ot O20.0 THREATENED 02/02/2018 DENISE ACOSTA MD Ot O03.4 INCOMPLETE SPONTANEOUS WITHOUT 02/02/2018 DENISE ACOSTA MD Ot O03.4 INCOMPLETE SPONTANEOUS WITHOUT 02/02/2018 DENISE ACOSTA MD Ot Z32.00 ENCOUNTER FOR TEST, RESULT UNK 02/02/2018 DENISE ACOSTA MD Ot Z32.01 ENCOUNTER FOR TEST, RESULT POS 02/02/2018 DENISE ACOSTA MD Ot O20.0 THREATENED 02/02/2018 DENISE ACOSTA MD Ot O03.4 INCOMPLETE SPONTANEOUS WITHOUT 02/02/2018 DENISE ACOSTA MD Ot Z32.00 ENCOUNTER FOR TEST, RESULT UNK 02/02/2018 Ot Z32.01 ENCOUNTER FOR TEST, RESULT POS 02/15/2018 ROSA MENJIVAR MD Ot R10.11 RIGHT UPPER QUADRANT PAIN 02/17/2018 ROSA MENJIVAR MD Ot R10.11 RIGHT UPPER QUADRANT PAIN 02/19/2018 WANDER MOTLEY, GAURI Crenshaw Ot E66.9 OBESITY, UNSPECIFIED 02/19/2018 WANDER MOTLEY, GAURI Crenshaw Ot G89.18 OTHER ACUTE POSTPROCEDURAL PAIN 02/19/2018 WANDER MOTLEY, GAURI Crenshaw Ot K81.1 CHRONIC CHOLECYSTITIS 02/19/2018 WANDER MOTLEY, GAURI Crenshaw Ot R10.84 GENERALIZED ABDOMINAL PAIN 02/19/2018 GAURI VIRAMONTES MD, Ot Z68.33 BODY MASS INDEX (BMI) 33.0-33.9, ADULT 02/24/2018 WANDER MOTLEY, GAURI Crenshaw Ot E66.9 OBESITY, UNSPECIFIED 02/24/2018 WANDER MOTLEY, GUARI Crenshaw Ot G89.18 OTHER ACUTE POSTPROCEDURAL PAIN 02/24/2018 WANDER MOTLEY, GAURI Crenshaw Ot K81.1 CHRONIC CHOLECYSTITIS 02/24/2018 WANDER MOTLEY, GAURI Crenshaw Ot R10.84 GENERALIZED ABDOMINAL PAIN 02/24/2018 WANDER MOTLEY, GAURI Crenshaw Ot Z68.33 BODY MASS INDEX (BMI) 33.0-33.9, ADULT 08/08/2018 ROSA MENJIVAR MD, Ot O20.9 HEMORRHAGE IN EARLY , UNSPECIFI 08/08/2018 ROSA MENJIVAR MD, Ot O30.001 TWIN PREG, UNSP NUM PLCNTA AMNIO SACS, 08/08/2018 ROSA MENJIVAR MD, Ot 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 08/08/2018 TIARA MOTLEY, ROSA Sauceda Ot Z3A.01 LESS THAN 8 WEEKS GESTATION OF Procedures Code [place] [address] THERAPUTIC INJ SQ/IM 06/12/2012 J1040 DEPO MEDROL 80 MG INJ 06/12/2012 OtolarCesar Richards 06/13/2012 71245 I/D SIMPLE ABSCESS 09/17/2012 81499 THERAPUTIC INJ SQ/IM 05/15/2013 J2550 PHENERGAN INJECTION UP TO 50 MG 05/15/2013 93379 TB TEST INTRADERMAL 10/03/2013 89663 NAIL REMOVAL SINGLE ( COMPLETE OR PARTIAL) 11/19/2013 30398 ROUTINE VENIPUNCTURE 11/20/2013 66921 THERAPUTIC INJ SQ/IM 11/20/2013 J2550 PHENERGAN INJECTION UP TO 50 MG 11/20/2013 63734 CBC 11/20/2013 9075712 GFR CALC (RESULT ONLY) 11/20/2013 69443 CMP 11/20/2013 28176 ROUTINE VENIPUNCTURE 02/01/2014 04186 TEST, URINE (IN- HOUSE) 02/01/2014 50150 IRON SERUM 02/01/2014 22488 FERRITIN 02/01/2014 92530 TSH 02/01/2014 [id number] VITAMIN B 12 FOLIC ACID ( RESULT ONLY) 02/01/2014 3219216 IMMATURE PLATELET FRACTION (RESULT ONLY) 02/01/2014 13858 RETICULOCYTE COUNT 02/01/2014 68999 IRON BNDNG CAP 02/01/2014 08109 CBC 02/01/2014 1328751 ANEM JIC 02/02/2014 1719108 HEMATOLOGY OTHER REPORT 02/04/2014 ANEMIAANA ANEMIA ANALYZER 02/05/2014 IRGROUP IRON GROUP (IRON,TIBC, FERRITIN) 02/15/2014 45938 ROUTINE VENIPUNCTURE 03/07/2014 50012 FERRITIN 03/07/2014 91414 TEST, URINE (IN- HOUSE) 04/08/2014 01873 UA LONG DIP 04/08/2014 89327 ROUTINE VENIPUNCTURE 05/06/2014 85545 CBC 05/06/2014 95327 FERRITIN 05/06/2014 20310 ROUTINE VENIPUNCTURE 08/23/2014 14536 CBC 08/23/2014 1331802 GFR CALC (RESULT ONLY) 08/23/2014 50160 CMP 08/23/2014 90294 LIPID PANEL 08/23/2014 60976 TSH 08/23/2014 26647 INSULIN LEVEL 08/23/2014 J2550 PHENERGAN INJECTION UP TO 50 MG 08/26/2014 04757 THERAPUTIC INJ SQ/IM 09/02/2014 [id number] RESECTION OF GALLBLADDER, PERCUTANEOUS E 02/16/2018 [id number] ROBOTIC ASSISTED PROCEDURE OF TRUNK, PER 02/16/2018 Results Test Result Range Serum or plasma choriogonadotropin measurement (units/volume) - 04/05/16 08:36 Serum or plasma choriogonadotropin measurement (units/volume) 157 m[ iU]/mL <5 Serum or plasma progesterone measurement (mass/volume) - 04/05/16 08:36 Serum or plasma progesterone measurement (mass/volume) 18.92 % NRG Serum or plasma choriogonadotropin measurement (units/volume) - 04/07/16 07:25 Serum or plasma choriogonadotropin measurement (units/volume) 427 m[ iU]/mL <5 Serum or plasma choriogonadotropin measurement (units/volume) - 04/12/16 06:06 Serum or plasma choriogonadotropin measurement (units/volume) 2381 m [iU]/mL <5 Serum or plasma progesterone measurement (mass/volume) - 04/12/16 06:06 Serum or plasma progesterone measurement (mass/volume) 22.79 % NRG Serum or plasma choriogonadotropin measurement (units/volume) - 04/13/16 09:52 Serum or plasma choriogonadotropin measurement (units/volume) 1226 m [iU]/mL <5 Serum or plasma progesterone measurement (mass/volume) - 04/13/16 09:52 Serum or plasma progesterone measurement (mass/volume) 8.82 % NRG Serum or plasma choriogonadotropin measurement (units/volume) - 04/20/16 07:16 Serum or plasma choriogonadotropin measurement (units/volume) 15 m[ iU]/mL <5 Serum or plasma choriogonadotropin measurement (units/volume) - 04/28/16 06:12 Serum or plasma choriogonadotropin measurement (units/volume) < m[iU ]/mL <5 Serum or plasma choriogonadotropin measurement (units/volume) - 06/25/16 10:45 Serum or plasma choriogonadotropin measurement (units/volume) 1599 m [iU]/mL <5 Serum or plasma progesterone measurement (mass/volume) - 06/25/16 10:45 Serum or plasma progesterone measurement (mass/volume) 22.70 % NRG Serum or plasma choriogonadotropin measurement (units/volume) - 06/28/16 11:02 Serum or plasma choriogonadotropin measurement (units/volume) 4784 m [iU]/mL <5 Serum or plasma progesterone measurement (mass/volume) - 06/28/16 11:02 Serum or plasma progesterone measurement (mass/volume) 22.74 % NRG Serum or plasma choriogonadotropin measurement (units/volume) - 06/30/16 06:15 Serum or plasma choriogonadotropin measurement (units/volume) 4678 m [iU]/mL <5 Serum or plasma progesterone measurement (mass/volume) - 06/30/16 06:15 Serum or plasma progesterone measurement (mass/volume) 5.87 % NRG Serum or plasma choriogonadotropin measurement (units/volume) - 07/22/16 09:18 Serum or plasma choriogonadotropin measurement (units/volume) < m[iU ]/mL <5 Serum or plasma choriogonadotropin measurement (units/volume) - 09/21/16 08:12 Serum or plasma choriogonadotropin measurement (units/volume) 995 m[ iU]/mL <5 Serum or plasma progesterone measurement (mass/volume) - 09/21/16 08:12 Serum or plasma progesterone measurement (mass/volume) 28.80 % NRG Serum or plasma progesterone measurement (mass/volume) - 09/27/16 05:30 Serum or plasma progesterone measurement (mass/volume) 39.00 % NRG Urine beta human chorionic gonadotropin (hCG) measurement - 02/16/18 10:15 Urine beta human chorionic gonadotropin (hCG) measurement NEGATIVE NEGATIVE Automated blood complete blood count (hemogram) panel - 02/16/18 10:35 Blood leukocytes automated count (number/volume) 6.3 10*3/uL 4.3-11.0 Blood erythrocytes automated count (number/volume) 4.72 10*6/uL 4.35-5.85 Venous blood hemoglobin measurement (mass/volume) 13.2 g/dL 11.5-16.0 Blood hematocrit (volume fraction) 38 % 35-52 Automated erythrocyte mean corpuscular volume 81 [foz_us] 80-99 Automated erythrocyte mean corpuscular hemoglobin (mass per erythrocyte) 28 pg 25-34 Automated erythrocyte mean corpuscular hemoglobin concentration measurement ( mass/volume) 35 g/dL 32-36 Automated erythrocyte distribution width ratio 13.3 % 10.0-14.5 Automated blood platelet count (count/volume) 222 10*3/uL 130-400 Automated blood platelet mean volume measurement 10.5 [foz_us] 7.4-10.4 Comprehensive metabolic panel - 02/16/18 10:35 Serum or plasma sodium measurement (moles/volume) 137 mmol/L 135-145 Serum or plasma potassium measurement (moles/volume) 3.9 mmol/L 3.6-5.0 Serum or plasma chloride measurement (moles/volume) 108 mmol/L 98-107 Carbon dioxide 20 mmol/L 21-32 Serum or plasma anion gap determination (moles/volume) 9 mmol/L 5-14 Serum or plasma urea nitrogen measurement (mass/volume) 11 mg/dL 7-18 Serum or plasma creatinine measurement (mass/volume) 0.62 mg/dL 0.60-1.30 Serum or plasma urea nitrogen/creatinine mass ratio 18 NRG Serum or plasma creatinine measurement with calculation of estimated glomerular filtration rate > NRG Serum or plasma glucose measurement (mass/volume) 83 mg/dL 70-105 Serum or plasma calcium measurement (mass/volume) 9.3 mg/dL 8.5-10.1 Serum or plasma total bilirubin measurement (mass/volume) 0.6 mg/dL 0.1-1.0 Serum or plasma alkaline phosphatase measurement (enzymatic activity/volume) 49 U/L 40-136 Serum or plasma aspartate aminotransferase measurement (enzymatic activity/ volume) 13 U/L 5-34 Serum or plasma alanine aminotransferase measurement (enzymatic activity/volume ) 14 U/L 0-55 Serum or plasma protein measurement (mass/volume) 7.4 g/dL 6.4-8.2 Serum or plasma albumin measurement (mass/volume) 4.3 g/dL 3.2-4.5 CALCIUM CORRECTED 9.1 mg/dL 8.5-10.1 Automated blood complete blood count (hemogram) panel - 02/18/18 09:40 Blood leukocytes automated count (number/volume) 5.7 10*3/uL 4.3-11.0 Blood erythrocytes automated count (number/volume) 3.96 10*6/uL 4.35-5.85 Venous blood hemoglobin measurement (mass/volume) 11.2 g/dL 11.5-16.0 Blood hematocrit (volume fraction) 33 % 35-52 Automated erythrocyte mean corpuscular volume 83 [foz_us] 80-99 Automated erythrocyte mean corpuscular hemoglobin (mass per erythrocyte) 28 pg 25-34 Automated erythrocyte mean corpuscular hemoglobin concentration measurement ( mass/volume) 34 g/dL 32-36 Automated erythrocyte distribution width ratio 13.5 % 10.0-14.5 Automated blood platelet count (count/volume) 191 10*3/uL 130-400 Automated blood platelet mean volume measurement 10.0 [foz_us] 7.4-10.4 Comprehensive metabolic panel - 02/18/18 09:40 Serum or plasma sodium measurement (moles/volume) 137 mmol/L 135-145 Serum or plasma potassium measurement (moles/volume) 3.7 mmol/L 3.6-5.0 Serum or plasma chloride measurement (moles/volume) 108 mmol/L 98-107 Carbon dioxide 19 mmol/L 21-32 Serum or plasma anion gap determination (moles/volume) 10 mmol/L 5-14 Serum or plasma urea nitrogen measurement (mass/volume) 5 mg/dL 7-18 Serum or plasma creatinine measurement (mass/volume) 0.61 mg/dL 0.60-1.30 Serum or plasma urea nitrogen/creatinine mass ratio 8 NRG Serum or plasma creatinine measurement with calculation of estimated glomerular filtration rate > NRG Serum or plasma glucose measurement (mass/volume) 129 mg/dL 70-105 Serum or plasma calcium measurement (mass/volume) 8.5 mg/dL 8.5-10.1 Serum or plasma total bilirubin measurement (mass/volume) 0.3 mg/dL 0.1-1.0 Serum or plasma alkaline phosphatase measurement (enzymatic activity/volume) 42 U/L 40-136 Serum or plasma aspartate aminotransferase measurement (enzymatic activity/ volume) 23 U/L 5-34 Serum or plasma alanine aminotransferase measurement (enzymatic activity/volume ) 33 U/L 0-55 Serum or plasma protein measurement (mass/volume) 5.9 g/dL 6.4-8.2 Serum or plasma albumin measurement (mass/volume) 3.5 g/dL 3.2-4.5 CALCIUM CORRECTED 8.9 mg/dL 8.5-10.1 Complete blood count (CBC) with automated white blood cell (WBC) differential - 08/15/18 18:16 Blood leukocytes automated count (number/volume) 10.1 10*3/uL 4.3-11.0 Blood erythrocytes automated count (number/volume) 4.89 10*6/uL 4.35-5.85 Venous blood hemoglobin measurement (mass/volume) 13.3 g/dL 11.5-16.0 Blood hematocrit (volume fraction) 40 % 35-52 Automated erythrocyte mean corpuscular volume 81 [foz_us] 80-99 Automated erythrocyte mean corpuscular hemoglobin (mass per erythrocyte) 27 pg 25-34 Automated erythrocyte mean corpuscular hemoglobin concentration measurement ( mass/volume) 34 g/dL 32-36 Automated erythrocyte distribution width ratio 15.1 % 10.0-14.5 Automated blood platelet count (count/volume) 261 10*3/uL 130-400 Automated blood platelet mean volume measurement 10.7 [foz_us] 7.4-10.4 Automated blood neutrophils/100 leukocytes 68 % 42-75 Automated blood lymphocytes/100 leukocytes 20 % 12-44 Blood monocytes/100 leukocytes 6 % 0-12 Automated blood eosinophils/100 leukocytes 5 % 0-10 Automated blood basophils/100 leukocytes 0 % 0-10 Blood neutrophils automated count (number/volume) 6.9 10*3 1.8-7.8 Blood lymphocytes automated count (number/volume) 2.0 10*3 1.0-4.0 Blood monocytes automated count (number/volume) 0.6 10*3 0.0-1.0 Automated eosinophil count 0.5 10*3/uL 0.0-0.3 Automated blood basophil count (count/volume) 0.0 10*3/uL 0.0-0.1 Comprehensive metabolic panel - 08/15/18 18:16 Serum or plasma sodium measurement (moles/volume) 137 mmol/L 135-145 Serum or plasma potassium measurement (moles/volume) 4.2 mmol/L 3.6-5.0 Serum or plasma chloride measurement (moles/volume) 108 mmol/L 98-107 Carbon dioxide 20 mmol/L 21-32 Serum or plasma anion gap determination (moles/volume) 9 mmol/L 5-14 Serum or plasma urea nitrogen measurement (mass/volume) 6 mg/dL 7-18 Serum or plasma creatinine measurement (mass/volume) 0.62 mg/dL 0.60-1.30 Serum or plasma urea nitrogen/creatinine mass ratio 10 NRG Serum or plasma creatinine measurement with calculation of estimated glomerular filtration rate > NRG Serum or plasma glucose measurement (mass/volume) 91 mg/dL 70-105 Serum or plasma calcium measurement (mass/volume) 9.8 mg/dL 8.5-10.1 Serum or plasma total bilirubin measurement (mass/volume) 0.3 mg/dL 0.1-1.0 Serum or plasma alkaline phosphatase measurement (enzymatic activity/volume) 45 U/L 40-136 Serum or plasma aspartate aminotransferase measurement (enzymatic activity/ volume) 17 U/L 5-34 Serum or plasma alanine aminotransferase measurement (enzymatic activity/volume ) 11 U/L 0-55 Serum or plasma protein measurement (mass/volume) 7.0 g/dL 6.4-8.2 Serum or plasma albumin measurement (mass/volume) 3.9 g/dL 3.2-4.5 CALCIUM CORRECTED 9.9 mg/dL 8.5-10.1 Serum or plasma choriogonadotropin measurement (units/volume) - 08/15/18 18:16 Serum or plasma choriogonadotropin measurement (units/volume) 643456 m[iU]/mL <5 Complete urinalysis with reflex to culture - 08/15/18 21:31 Urine color determination YELLOW NRG Urine clarity determination SLIGHTLY CLOUDY NRG Urine pH measurement by test strip 6 5-9 Specific gravity of urine by test strip 1.025 1.016- 1.022 Urine protein assay by test strip, semi-quantitative NEGATIVE NEGATIVE Urine glucose detection by automated test strip NEGATIVE NEGATIVE Erythrocytes detection in urine sediment by light microscopy 3+ NEGATIVE Urine ketones detection by automated test strip 4+ NEGATIVE Urine nitrite detection by test strip NEGATIVE NEGATIVE Urine total bilirubin detection by test strip NEGATIVE NEGATIVE Urine urobilinogen measurement by automated test strip (mass/volume) NORMAL NORMAL Urine leukocyte esterase detection by dipstick 3+ NEGATIVE Automated urine sediment erythrocyte count by microscopy (number/high power field) NONE NRG Automated urine sediment leukocyte count by microscopy (number/high power field ) [HPF] NRG Bacteria detection in urine sediment by light microscopy FEW NRG Squamous epithelial cells detection in urine sediment by light microscopy 10-25 NRG Crystals detection in urine sediment by light microscopy NONE NRG Casts detection in urine sediment by light microscopy NONE NRG Mucus detection in urine sediment by light microscopy NEGATIVE NRG Complete urinalysis with reflex to culture YES NRG Encounters ACCT No. Visit Date/Time Discharge Status Pt. Type Provider Facility Loc./Unit Complaint [id number] 09/02/2014 07:56:00 09/02/2014 23:59:59 CLS Outpatient LELAND ABURTO APRN [id number] 08/24/2014 08:58:00 08/24/2014 23:59:59 CLS Outpatient OSCAR CHOPRA APRN [id number] 05/06/2014 08:14:00 05/06/2014 23:59:59 CLS Outpatient EMORY OLIVARES DO [id number] 04/08/2014 11:45:00 04/08/2014 23:59:59 CLS Outpatient EMOYR OLIVARES DO [id number] 03/07/2014 10:28:00 03/07/2014 23:59:59 CLS Outpatient LELAND ABURTO APRN [id number] 02/15/2014 10:36:00 02/15/2014 23:59:59 CLS Outpatient EMORY OLIVARES DO [id number] 11/20/2013 08:18:00 11/20/2013 23:59:59 CLS Outpatient HUKENNY MOURA MD [id number] 10/26/2013 16:00:00 10/26/2013 23:59:59 CLS Outpatient EMORY OLIVARES DO [id number] 08/08/2013 09:34:00 08/08/2013 23:59:59 CLS Outpatient EMORY OLIVARES DO [id number] 06/25/2013 08:10:00 06/25/2013 23:59:59 CLS Outpatient KENNY GAFFNEY MD [id number] 05/15/2013 08:59:00 05/15/2013 23:59:59 CLS Outpatient EMORY OLIVARES DO [id number] 02/14/2013 13:09:00 02/14/2013 23:59:59 CLS Outpatient EMORY OLIVARES DO [id number] 06/12/2012 16:25:00 06/12/2012 23:59:59 [place] [id number] 03/20/2012 08:42:00 03/20/2012 23:59:59 CLS Outpatient [id number] 09/14/2012 17:58:00 Document Registration [id number] 08/02/2018 08:46:00 08/02/2018 23:59:59 CLS Outpatient ROSA MENJIVAR MD [facility] RAD BLEED 1ST TRIMESTER- TWINS [id number] 02/18/2018 15:52:00 02/19/2018 12:22:00 DIS Outpatient GAURI VIRAMONTES MD [facility] 4TH GALLBLADDER DYSKINESIA [id number] 02/15/2018 12:35:00 02/15/2018 23:59:59 CLS Outpatient ROSA MENJIVAR MD [facility] CARD RUQ PAIN,GB DYSFUNCTION SUSPECT [id number] 02/14/2018 14:47:00 02/14/2018 23:59:59 CLS Outpatient ROSA MENJIVAR MD [facility] RAD R QUAD PAIN [id number] 02/03/2018 19:53:00 02/04/2018 06:25:00 DIS Outpatient LUZMARIA SPARROW MD [facility] SLEEP OBSTRUCTIVE SLEEP APNEA [id number] 10/14/2017 09:42:00 10/14/2017 23:59:59 CLS Preadmit LUZMARIA SPARROW MD [facility] SLEEP LONNY,MEMORY LOSS [id number] 09/21/2016 08:02:00 09/21/2016 23:59:59 CLS Outpatient DENISE ACOSTA MD [facility] LAB Z32.00 [id number] 07/22/2016 09:18:00 07/22/2016 23:59:59 CLS Outpatient DENISE ACOSTA MD [facility] LAB COMPLETE OR UNSPECIFIED SPONTANEOUS [id number] 06/30/2016 11:05:00 06/30/2016 23:59:59 CLS Outpatient DENISE ACOSTA MD [facility] LAB 020.0 [id number] 06/28/2016 10:59:00 06/28/2016 23:59:59 CLS Outpatient DENISE ACOSTA MD [facility] LAB Z32.01 [id number] 06/25/2016 11:15:00 06/25/2016 23:59:59 CLS Outpatient DENISE ACOSTA MD [facility] LAB Z32.00 [id number] 04/28/2016 06:12:00 04/28/2016 23:59:59 CLS Outpatient DENISE ACOSTA MD [facility] LAB [id number] 04/20/2016 07:12:00 04/20/2016 23:59:59 CLS Outpatient DENISE ACOSTA MD [facility] LAB 003.4 [id number] 04/13/2016 09:51:00 04/13/2016 23:59:59 CLS Outpatient DENISE ACOSTA MD [facility] LAB 020.0 [id number] 04/12/2016 06:04:00 04/12/2016 23:59:59 CLS Outpatient DENISE ACOSTA MD [facility] LAB 009.811 [id number] 04/07/2016 08:49:00 04/07/2016 23:59:59 CLS Outpatient DENISE ACOSTA MD [facility] LAB Z32.01 [id number] 04/05/2016 08:28:00 04/05/2016 23:59:59 CLS Outpatient DENISE ACOSTA MD [facility] LAB Z32.00 [id number] 02/26/2016 14:05:00 02/26/2016 23:59:[address] [employer] [employer] [facility] OCC POSITIVE TB SKIN TEST [id number] 11/03/2015 13:35:00 11/03/2015 18:05:00 DIS Emergency RAFAEL MOTLEY, BEHZAD Andrew [facility] ER ABD/LOWER BACK PAIN [id number] 03/04/2015 12:56:00 03/04/2015 23:59:59 CLS Outpatient JESUS CANTU [employer] [facility] RAD LESION [id number] 02/27/2015 13:04:00 02/27/2015 23:59:59 CLS Outpatient JESUS C[employer]U [employer] [facility] RAD BREAST MASS [id number] 08/15/2018 17:50:00 ACT Emergency SHEY HERNANDEZ [facility] ER VOMITING - 8 WKS PREG TWINS [id number] 09/28/2016 08:24:00 Document Registration [id number] 05/06/2017 21:20:00 05/06/2017 22:03:00 DIS Outpatient [facility] ER [id number] 05/06/2017 21:56:56 Document Registration
[2018-08-16 00:20] VITALS: BP 101/68
--- NOTE | 2018-08-16 00:20 | NUR ---
0008-Report received from SHARDA Joyce RN. 0020-Pt. arrived on unit via wheelchair. Assisted to bed in room 302. IV patent. Ice chips provided. Pt. oriented to room, call light, room service. No questions or concerns voiced at this time.
[2018-08-16] MEDS ORDERED: ACETAMINOPHEN 500 MG TAB (TYLENOL) PO PRN (00:45)
[2018-08-16] MEDS ORDERED: D5 1/2 NS 1000 ML IV SOLUTION 1,000 ML IV ONE (00:58)
[2018-08-16] MEDS: D5 1/2 NS 1000 ML IV SOLUTION 1,000 ML IV SCH ×3 (01:41→18:21)
[2018-08-16 03:30] VITALS: BP 98/58
[2018-08-16] MEDS: ONDANSETRON 4 MG/2 ML (SDV) Z0FRAN IVP SCH ×4 (03:34→23:13)
[2018-08-16] MEDS ORDERED: PROMETHAZINE INJ 25 MG/ML (PHENERGAN) AMP IVP PRN (04:00)
[2018-08-16 06:39] LABS: BASOPHILS % (AUTO) 0 % (0-10); EOSINOPHILS # (AUTO) 0.5 10^3/uL (0.0-0.3); EOSINOPHILS % (AUTO) 7 % (0-10); HEMATOCRIT 32 % (35-52); HEMOGLOBIN 10.6 G/DL (11.5-16.0); LYMPHOCYTES # (AUTO) 1.4 X 10^3 (1.0-4.0); LYMPHOCYTES % (AUTO) 22 % (12-44); MEAN CORPUSCULAR HEMOGLOBIN 28 PG (25-34); MEAN CORPUSCULAR HGB CONC 33 G/DL (32-36); MEAN CORPUSCULAR VOLUME 83 FL (80-99); MEAN PLATELET VOLUME 10.7 FL (7.4-10.4); MONOCYTES # (AUTO) 0.4 X 10^3 (0.0-1.0); MONOCYTES % (AUTO) 6 % (0-12); NEUTROPHILS # (AUTO) 4.3 X 10^3 (1.8-7.8); NEUTROPHILS % (AUTO) 65 % (42-75); PLATELET COUNT 192 10^3/uL (130-400); RED CELL DISTRIBUTION WIDTH 15.1 % (10.0-14.5); WHITE BLOOD COUNT 6.7 10^3/uL (4.3-11.0)
[2018-08-16 06:52] LABS: ALANINE AMINOTRANSFERASE 7 U/L (0-55); ALBUMIN 2.9 GM/DL (3.2-4.5); ALKALINE PHOSPHATASE 34 U/L (40-136); BILIRUBIN,TOTAL 0.3 MG/DL (0.1-1.0); BUN/CREATININE RATIO 7; CALCIUM 7.7 MG/DL (8.5-10.1); CARBON DIOXIDE 18 MMOL/L (21-32); CHLORIDE 114 MMOL/L (98-107); CREATININE SERUM 0.55 MG/DL (0.60-1.30); GFR ESTIMATED > 60; GLUCOSE 98 MG/DL (70-105); POTASSIUM 3.4 MMOL/L (3.6-5.0); SODIUM 138 MMOL/L (135-145); TOTAL PROTEIN 4.9 GM/DL (6.4-8.2)
[2018-08-16] MEDS: FAMOTIDINE 20MG/2ML IV (PEPCID) IVP SCH ×2 (08:37→20:59)
--- NOTE | 2018-08-16 08:38 | NUR ---
Dr. Charles here to see pt.
[2018-08-16] MEDS ORDERED: THIAMINE INJECTION 100 MG, FOLIC ACID INJECTION 1 MG, VITAMIN MULTI INJECTION 10 ML, MA... IV ONE ×10 (08:45→17:15)
[2018-08-16 08:47] VITALS: BP 99/54
--- NOTE | 2018-08-16 08:50 | History & Physical-OB ---
OB - Chief Complaint & HPI Date/Time Date of Admission: Date of Admission: Aug 16, 2018 at 00:00 Date seen by a Provider: Aug 16, 2018 Time Seen by a Provider: 08:30 Chief Complaint/History OB-Reason for Admission/Chief: hyperemesis gravidarum Hx : 10 Hx Para: 2 Expected Date of Delivery: Mar 25, 2019 Gestational Age in Weeks: 7 Gestational Age in Days: 5 Admission Nurse Assessment Rev: Yes Allergies and Home Medications Allergies Coded Allergies: No Known Drug Allergies (Unverified , 08/16/18) Home Medications Hydrocodone Bit/Acetaminophen 1 Tab Tab, 1-2 TAB PO Q6H PRN for PAIN-MODERATE Prescribed by: GAURI VIRAMONTES on 02/16/18 7153 OB - History Hx of Present Care: Yes Obstetrical History Hx : 10 Hx Para: 2 Hx Total # of Abortions (Spona: 7 Delivery History Hx Blood Disorders: No Social History/Family History HIV/AIDS: No Recent Infectious Disease Expo: No Sexually Transmitted Disease: No Alcohol Use: Denies Use Recreational Drug Use: No Immunizations Date of Influenza Vaccine: Feb 15, 2018 OB - Admission Exam Physical Exam Vitals: Vital Signs 08/16/18 08:47 Temp 98.5 Pulse 67 Resp 16 B/P (MAP) 99/54 (69) Pulse Ox 98 O2 Delivery Room Air Labs Laboratory Tests Test 08/15/18 18:16 08/15/18 21:31 08/16/18 06:20 Range/Units White Blood Count 10.1 6.7 4.3-11.0 10^3/uL Red Blood Count 4.89 3.85 L 4.35-5.85 10^6/uL Hemoglobin 13.3 10.6 #L 11.5-16.0 G/DL Hematocrit 40 32 L 35-52 % Mean Corpuscular Volume 81 83 80-99 FL Mean Corpuscular Hemoglobin 27 28 25-34 PG Mean Corpuscular Hemoglobin Concent 34 33 32-36 G/DL Red Cell Distribution Width 15.1 H 15.1 H 10.0-14.5 % Platelet Count 261 192 130-400 10^3/uL Mean Platelet Volume 10.7 H 10.7 H 7.4-10.4 FL Neutrophils (%) (Auto) 68 65 42-75 % Lymphocytes (%) (Auto) 20 22 12-44 % Monocytes (%) (Auto) 6 6 0-12 % Eosinophils (%) (Auto) 5 7 0-10 % Basophils (%) (Auto) 0 0 0-10 % Neutrophils # (Auto) 6.9 4.3 1.8-7.8 X 10^3 Lymphocytes # (Auto) 2.0 1.4 1.0-4.0 X 10^3 Monocytes # (Auto) 0.6 0.4 0.0-1.0 X 10^3 Eosinophils # (Auto) 0.5 H 0.5 H 0.0-0.3 10^3/uL Basophils # (Auto) 0.0 0.0 0.0-0.1 10^3/uL Sodium Level 137 138 135-145 MMOL/L Potassium Level 4.2 3.4 L 3.6-5.0 MMOL/L Chloride Level 108 H 114 H 98-107 MMOL/L Carbon Dioxide Level 20 L 18 L 21-32 MMOL/L Anion Gap 9 6 5-14 MMOL/L Blood Urea Nitrogen 6 L 4 L 7-18 MG/DL Creatinine 0.62 0.55 L 0.60-1.30 MG/DL Estimat Glomerular Filtration Rate > 60 > 60 BUN/Creatinine Ratio 10 7 Glucose Level 91 98 70-105 MG/DL Calcium Level 9.8 7.7 L 8.5-10.1 MG/DL Corrected Calcium 9.9 8.6 8.5-10.1 MG/DL Total Bilirubin 0.3 0.3 0.1-1.0 MG/DL Aspartate Amino Transf (AST/SGOT) 17 10 5-34 U/L Alanine Aminotransferase (ALT/SGPT) 11 7 0-55 U/L Alkaline Phosphatase 45 34 L 40-136 U/L Total Protein 7.0 4.9 L 6.4-8.2 GM/DL Albumin 3.9 2.9 L 3.2-4.5 GM/DL Human Chorionic Gonadotropin, Quant 356311 H <5 MIU/ML Urine Color YELLOW Urine Clarity SLIGHTLY CLOUDY Urine pH 6 5-9 Urine Specific [place] 1.025 H 1.016-1.022 Urine Protein NEGATIVE NEGATIVE Urine Glucose (UA) NEGATIVE NEGATIVE Urine Ketones 4+ H NEGATIVE Urine Nitrite NEGATIVE NEGATIVE Urine Bilirubin NEGATIVE NEGATIVE Urine Urobilinogen NORMAL NORMAL MG/DL Urine Leukocyte Esterase 3+ H NEGATIVE Urine RBC (Auto) 3+ H NEGATIVE Urine RBC NONE /HPF Urine WBC 10-25 H /HPF Urine Squamous Epithelial Cells 10-25 H /HPF Urine Crystals NONE /LPF Urine Bacteria FEW H /HPF Urine Casts NONE /LPF Urine Mucus NEGATIVE /LPF Urine Culture Indicated YES LIA DORADO DO Aug 16, 2018 08:50
[2018-08-16] MEDS ORDERED: CATHETER FLUSH 10 ML SYR IV PRN (09:15)
[2018-08-16 12:12] VITALS: BP 101/55
[2018-08-16] MEDS: METOCLOPRAMIDE INJ 10 MG/2 ML (REGLAN) IVP SCH ×2 (12:13→21:00)
[2018-08-16] MEDS ORDERED: D5 1/2 NS W/KCL 20 MEQ/L 1,000 ML IV SCH (13:00)
[2018-08-16 16:15] VITALS: BP 90/56
--- NOTE | 2018-08-16 17:05 | NUR ---
Dr. Charles here to see pt. Plan to keep overnight for fluids. Orders rec'd.
[2018-08-16 21:05] VITALS: BP 116/68
[2018-08-16] MEDS ORDERED: cefTRIAXone FOR IV USE 1,000 MG in WATER (STERILE) FOR INJECTION 10 ML IV SCH (23:39)
[2018-08-17] MEDS: D5 1/2 NS 1000 ML IV SOLUTION 1,000 ML IV SCH (02:30)
[2018-08-17] MEDS: METOCLOPRAMIDE INJ 10 MG/2 ML (REGLAN) IVP SCH ×2 (03:24→09:22)
[2018-08-17 06:12] VITALS: BP 105/55
[2018-08-17] MEDS: ONDANSETRON 4 MG/2 ML (SDV) Z0FRAN IVP SCH (06:14)
[2018-08-17 07:06] LABS: BUN/CREATININE RATIO 4; CALCIUM 8.3 MG/DL (8.5-10.1); CARBON DIOXIDE 19 MMOL/L (21-32); CHLORIDE 110 MMOL/L (98-107); CREATININE SERUM 0.57 MG/DL (0.60-1.30); GFR ESTIMATED > 60; GLUCOSE 102 MG/DL (70-105); MAGNESIUM 1.9 MG/DL (1.8-2.4); POTASSIUM 3.8 MMOL/L (3.6-5.0); SODIUM 136 MMOL/L (135-145)
--- NOTE | 2018-08-17 08:45 | Progress Note (SOAP) ---
Objective Exam Vital Signs Date Time Temp Pulse Resp B/P (MAP) Pulse Ox O2 Delivery O2 Flow Rate FiO2 08/17/18 06:12 98.2 63 16 105/55 (72) 99 Room Air 08/16/18 21:05 98.9 70 16 116/68 (84) 99 Room Air 08/16/18 16:15 98.6 75 16 90/56 (67) 98 Room Air 08/16/18 12:12 98.7 72 16 101/55 (70) 98 Room Air 08/16/18 08:47 98.5 67 16 99/54 (69) 98 Room Air I & O 08/17/18 07:00 Intake Total 3415.2 ml Output Total 2100 ml Balance 1315.2 ml Capillary Refill : Less Than 3 Seconds Results Lab Laboratory Tests 08/17/18 06:35: Sodium Level 136, Potassium Level 3.8, Chloride Level 110H, Carbon Dioxide Level 19L, Anion Gap 7, Blood Urea Nitrogen 2L, Creatinine 0.57L, Estimat Glomerular Filtration Rate > 60, BUN/Creatinine Ratio 4, Glucose Level 102, Calcium Level 8.3L, Magnesium Level 1.9 Microbiology 08/15/18 Urine Culture - Final, Complete See Report LIA DORADO DO Aug 17, 2018 08:45
--- NOTE | 2018-08-17 08:49 | NUR ---
here to see pt. dismissal orders received.
[2018-08-17] MEDS ORDERED: METO-310 PO (08:52)
[2018-08-17] MEDS ORDERED: PROM25TA14 PO (08:52)
--- NOTE | 2018-08-17 08:54 | Discharge Inst-Women's Service ---
Discharge Inst-Women's Serv Depart Medication/Instructions New, Converted or Re-Newed RX: Transmitted to Pharmacy Final Diagnosis hyperemesis gravidarum hypokalemia twin gestation, 7 weeks Consults/Follow Up Additional Follow Up: Yes (follow up with Dr. Conde as directed, Follow up with Dr. Escalante within the week) Activity Activity: Activity as Tolerated Driving Instructions: You May Drive NO SMOKING: NO SMOKING Nothing Inside Vagina: No Douching, No [place], No Tampons Diet Discharge Diet: No Restrictions Symptoms to Report to : Swelling Increased, Bleeding Excessive, Pain Increased, Fever Over 101 Degrees F, Heart Beat Irreg/Pounding, Vaginal Bleeding Increase, Lightheadedness, Vaginal Discharge Foul, Dizziness/Fainting, Nausea/Vomiting For Any Problems or Questions: Contact Your Physician LIA DORADO DO Aug 17, 2018 08:54
[2018-08-17 09:22] VITALS: BP 109/57
[2018-08-17] MEDS: FAMOTIDINE 20MG/2ML IV (PEPCID) IVP SCH (09:22)
--- NOTE | 2018-08-17 09:22 | NUR ---
initial shift assessment competed, see interventions for further. denies c/o's nausea & vomiting @ time. POC reviewed, states understanding.
--- NOTE | 2018-08-17 10:10 | NUR ---
IVF's completed. IV site dc'd. dismissal instructions given, verbalizes understanding. reviewed follow up appointments & sx's to RTC. signature page signed, placed on chart.
--- NOTE | 2018-08-17 10:15 | NUR ---
pt ambulated to private vehicle without assist. pt stable, no sx's of distress noted.
== END 2018-08-17 10:15 | disposition home or self-care (01) ==
LOC: EDUNIT# 17:48 → ER 17:50 → LDRP 08-16
PROVIDERS: ADMIT Obstetrics & Gynecology; ATTEND Obstetrics & Gynecology
DX: O21.1 Hyperemesis gravidarum with metabolic disturbance (principal); O23.11 Infections of bladder in pregnancy, first trimester; Z3A.01 Less than 8 weeks gestation of pregnancy
CPT/HCPCS: 36415; 80048; 80053; 81000; 83735; 84702; 85025; 87088; 96361; 96374; 96375; 96376; 99211; G0378

== ENCOUNTER 2018-09-21 01:48 | Emergency (ER) | payer OTHER ==
[~2018-09-21] VITALS: Ht 152.4 cm; Wt 78.9 kg
[~2018-09-21 01:48] MED LIST changes: +ESTRADIOL; +METO-310 PO; +ONDN4T PO; +PROG50VI2 IM; +PROM25TA14 PO
[2018-09-21 02:05] VITALS: BP 115/67
--- NOTE | 2018-09-21 02:05 | NUR ---
PT DECIDED TO LEAVE AFTER SPEAKING WITH DR. GREENE AND NOTIFIED OF ULTRASOUND NOT AVAILABLE AT THIS TIME. PT AND WILL POV TO [facility] WHERE OB IS.
--- NOTE | 2018-09-21 02:14 | ED GU-Female ---
General Stated Complaint: 12 WKS 5 DAYS PREG W/TWINS, VAG BLEEDING Source: patient History of Present Illness Date Seen by Provider: September 21, 2018 Time Seen by Provider: 02:00 Initial Comments PT ARRIVES VIA POV FROM HOME PT STATES SHE IS 12 WEEKS 5 DAYS WITH TWINS ( VIA IVF) PT STATES SHE BEGAN TO HAVE VERY HEAVY BLEEDING 45 MINUTES AGO, WAS ASLEEP AT THE TIME--BLEEDING IS HEAVY A REGULAR PERIOD HAS NOT USED ANY PADS NO ABDOMINAL PAIN OR CRAMPING NO DIZZINESS NO NAUSEA/VOMITING PT WAS ADVISED ON ARRIVAL THAT WE DO NOT HAVE ULTRASOUND CAPABILITY AT THIS TIME , BUT COULD DO BASELINE LAB PT STATES 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 Allergies and Home Medications Allergies Coded Allergies: No Known Drug Allergies (Unverified , 08/16/18) Home Medications Metoclopramide HCl 10 Mg Tablet, 10 MG PO Q6H PRN for NAUSEA/VOMITING-1ST LINE Prescribed by: LIA DORADO on 08/17/18 0852 Promethazine HCl 25 Mg Tablet, 25 MG PO Q6H PRN for NAUSEA/VOMITING Prescribed by: LIA DORADO on 08/17/18 0852 Patient Home Medication List Home Medication List Reviewed: Yes Review of Systems Review of Systems Constitutional: No dizziness Gastrointestinal: no symptoms reported Genitourinary: see HPI : Yes Past Uwqwopy-Qzrweo-Jfiaqz Hx Patient Social History Recent Foreign Travel: No Contact w/Someone Who Travel: No Recent Hopitalizations: No Immunizations Up To Date Date of Influenza Vaccine: Feb 15, 2018 Past Medical History Surgeries: Yes (LEFT ACL) Appendectomy, Gallbladder, Orthopedic, Tonsillectomy Respiratory: No Cardiac: No Neurological: No Reproductive Disorders: Yes (INFERTILITY ISSUES --ALL PREGNANCIES HAVE BEEN IVF ) Sexually Transmitted Disease: No HIV/AIDS: No Genitourinary: No Gastrointestinal: No Musculoskeletal: No Endocrine: No Cancer: No Psychosocial: No Integumentary: No Blood Disorders: No Family Medical History No Pertinent Family Hx Physical Exam Vital Signs Capillary Refill : Height, Weight, BMI Height: 5'0.00" Weight: 174lbs. 0.0oz. 78.158388qd; 34.0 BMI Method:Stated General Appearance: WD/WN, no apparent distress Cardiovascular: regular rate, rhythm Respiratory: no respiratory distress Extremities: no pedal edema Neurologic/Psychiatric: alert, oriented x 3 Skin: normal color, warm/dry Progress/Results/Core Measures Suspected Sepsis SIRS Temperature: Pulse: Respiratory Rate: Blood Pressure / Mean: Results/Orders My Orders Orders - STEPHANIE GREENE DO Basic Metabolic Panel (09/21/18 02:01) Cbc With Automated Diff (09/21/18 02:01) Hcg,Quantitative (09/21/18 02:01) Protime With Inr (09/21/18 02:01) Partial Thromboplastin Time (09/21/18 02:01) Abo Rh Type (09/21/18 02:01) Vital Signs/I&O Capillary Refill : Departure Impression Primary Impression: First trimester bleeding Disposition: 01 HOME, SELF-CARE Condition: Stable Departure-Patient Inst. Referrals: ROSA MENJIVAR MD (PCP/Family) Primary Care Physician Patient Instructions: Bleeding With (DC) Add. Discharge Instructions: GO TO CLOSEST FACILITY WITH ULTRASOUND CAPABILITES STEPHANIE GREENE DO September 21, 2018 02:14
== END 2018-09-21 02:10 | disposition home or self-care (01) ==
LOC: EDUNIT# 01:48 → ER 01:51
DX: O20.9 Hemorrhage in early pregnancy, unspecified (principal); Z3A.12 12 weeks gestation of pregnancy; Z90.89 Acquired absence of other organs; Z90.49 Acquired absence of other specified parts of digestive tract; Z87.59 Personal history of other complications of pregnancy, childbirth and the puerperium
CPT/HCPCS: 99281

== ENCOUNTER 2018-12-13 10:10 | Emergency (ER) | payer OTHER ==
[~2018-12-13] VITALS: Ht 152.4 cm; Wt 79.8 kg
[2018-12-13] MEDS ORDERED: NS IV 1000 ML 1,000 ML IV STA (10:23)
[2018-12-13] MEDS ORDERED: ONDANSETRON 4 MG/2 ML (SDV) Z0FRAN IVP ONE (10:30)
[2018-12-13] MEDS ORDERED: MECLIZINE 25 MG (ANTIVERT) TAB PO ONE (10:30)
--- NOTE | 2018-12-13 10:33 | ED General ---
General Stated Complaint: DIZZINESS;SANDERS Source of Information: Patient Exam Limitations: No Limitations History of Present Illness Date Seen by Provider: Dec 13, 2018 Time Seen by Provider: 10:30 Initial Comments To ER complaint by with reports of lightheadedness, "hot flash", dizziness and nausea. This was rather sudden in onset she was at work. 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 She had a sudden onset of dizziness and flushing, felt the need to go to the bathroom and wipe her face down with cool water but was unable to make it to the bathroom due to weakness and decided to lay down on the floor. This was at 9:24 this morning, currently about an hour later she is still nauseous, dizzy and with a slight headache. SHe is 24 weeks gestation with twins, follows with high risk in [place]. She has no abdominal cramping or pain. Timing/Duration: 1-2 Days Severity: Moderate Associated Systoms: Headaches, Nausea/Vomiting Allergies and Home Medications Allergies Coded Allergies: No Known Drug Allergies (Unverified , 08/16/18) Home Medications Cefuroxime Axetil 250 Mg Tablet, 250 MG PO BID Prescribed by: GABBI VILLASENOR on 12/13/18 1118 Metoclopramide HCl 10 Mg Tablet, 10 MG PO Q6H PRN for NAUSEA/VOMITING-1ST LINE Prescribed by: LIA DORADO on 08/17/18 0852 Promethazine HCl 25 Mg Tablet, 25 MG PO Q6H PRN for NAUSEA/VOMITING Prescribed by: LIA DORADO on 08/17/18 0852 Promethazine HCl 25 Mg Tablet, 0.5 TAB PO Q8H PRN for NAUSEA/VOMITING Prescribed by: GABBI VILLASENOR on 12/13/18 1118 Patient Home Medication List Home Medication List Reviewed: Yes Review of Systems Review of Systems Constitutional: see HPI EENTM: see HPI Respiratory: no symptoms reported Cardiovascular: no symptoms reported Gastrointestinal: No abdominal pain, No constipation, No diarrhea; nausea; No vomiting Genitourinary: no symptoms reported Musculoskeletal: no symptoms reported Skin: no symptoms reported Psychiatric/Neurological: No Symptoms Reported, Headache Hematologic/Lymphatic: No Symptoms Reported Immunological/Allergic: no symptoms reported Past Bpbanml-Fewjii-Faaljr Hx Patient Social History Recent Foreign Travel: No Contact w/Someone Who Travel: No Recent Hopitalizations: No Immunizations Up To Date Date of Influenza Vaccine: Feb 15, 2018 Past Medical History Surgeries: Yes (LEFT ACL) Appendectomy, Gallbladder, Orthopedic, Tonsillectomy Respiratory: No Cardiac: No Neurological: No Reproductive Disorders: Yes (INFERTILITY ISSUES --ALL PREGNANCIES HAVE BEEN IVF) Sexually Transmitted Disease: No HIV/AIDS: No Genitourinary: No Gastrointestinal: No Musculoskeletal: No Endocrine: No Cancer: No Psychosocial: No Integumentary: No Blood Disorders: No Family Medical History No Pertinent Family Hx Physical Exam Vital Signs Vital Signs - First Documented 12/13/18 10:16 Temp 98.7 Pulse 90 Resp 22 B/P (MAP) 116/78 (91) Pulse Ox 97 O2 Delivery Room Air Capillary Refill : Height, Weight, BMI Height: 5'0.00" Weight: 174lbs. 0.0oz. 78.613681lt; 34.0 BMI Method:Stated General Appearance: No Apparent Distress, WD/WN, Other (alert conversing with me appropriately. Blood pressure 116/82.) Eyes: Bilateral Eye Normal Inspection, Bilateral Eye PERRL, Bilateral Eye EOMI HEENT: PERRL/EOMI, TMs Normal Respiratory: No Accessory Muscle Use, No Respiratory Distress Cardiovascular: Regular Rate, Rhythm, Normal Peripheral Pulses Gastrointestinal: Non Tender, Soft Neurologic/Psychiatric: Alert, Oriented x3 Skin: Normal Color, Warm/Dry Progress/Results/Core Measures Suspected Sepsis SIRS Temperature: Pulse: Respiratory Rate: Laboratory Tests 12/13/18 10:25: White Blood Count 8.7 Blood Pressure / Mean: Laboratory Tests 12/13/18 10:25: Creatinine 0.54L, Platelet Count 256, Total Bilirubin 0.4 Results/Orders Lab Results Laboratory Tests Test 12/13/18 10:25 Range/Units White Blood Count 8.7 4.3-11.0 10^3/uL Red Blood Count 4.21 L 4.35-5.85 10^6/uL Hemoglobin 9.9 L 11.5-16.0 G/DL Hematocrit 31 L 35-52 % Mean Corpuscular Volume 74 L 80-99 FL Mean Corpuscular Hemoglobin 24 L 25-34 PG Mean Corpuscular Hemoglobin Concent 32 32-36 G/DL Red Cell Distribution Width 15.7 H 10.0-14.5 % Platelet Count 256 130-400 10^3/uL Mean Platelet Volume 10.0 7.4-10.4 FL Neutrophils (%) (Auto) 74 42-75 % Lymphocytes (%) (Auto) 18 12-44 % Monocytes (%) (Auto) 7 0-12 % Eosinophils (%) (Auto) 1 0-10 % Basophils (%) (Auto) 0 0-10 % Neutrophils # (Auto) 6.5 1.8-7.8 X 10^3 Lymphocytes # (Auto) 1.6 1.0-4.0 X 10^3 Monocytes # (Auto) 0.6 0.0-1.0 X 10^3 Eosinophils # (Auto) 0.1 0.0-0.3 10^3/uL Basophils # (Auto) 0.0 0.0-0.1 10^3/uL Urine Color YELLOW Urine Clarity CLEAR Urine pH 6 5-9 Urine Specific [place] 1.025 H 1.016-1.022 Urine Protein 2+ H NEGATIVE Urine Glucose (UA) NEGATIVE NEGATIVE Urine Ketones 1+ H NEGATIVE Urine Nitrite NEGATIVE NEGATIVE Urine Bilirubin NEGATIVE NEGATIVE Urine Urobilinogen 1 NORMAL MG/DL Urine Leukocyte Esterase 3+ H NEGATIVE Urine RBC (Auto) NEGATIVE NEGATIVE Urine RBC RARE /HPF Urine WBC 25-50 H /HPF Urine Squamous Epithelial Cells 25-50 H /HPF Urine Crystals NONE /LPF Urine Bacteria MODERATE H /HPF Urine Casts NONE /LPF Urine Mucus SMALL H /LPF Urine Culture Indicated YES Sodium Level 137 135-145 MMOL/L Potassium Level 3.7 3.6-5.0 MMOL/L Chloride Level 109 H 98-107 MMOL/L Carbon Dioxide Level 17 L 21-32 MMOL/L Anion Gap 11 5-14 MMOL/L Blood Urea Nitrogen 4 L 7-18 MG/DL Creatinine 0.54 L 0.60-1.30 MG/DL Estimat Glomerular Filtration Rate > 60 BUN/Creatinine Ratio 7 Glucose Level 108 H 70-105 MG/DL Calcium Level 9.0 8.5-10.1 MG/DL Corrected Calcium 9.7 8.5-10.1 MG/DL Total Bilirubin 0.4 0.1-1.0 MG/DL Aspartate Amino Transf (AST/SGOT) 18 5-34 U/L Alanine Aminotransferase (ALT/SGPT) 19 0-55 U/L Alkaline Phosphatase 84 40-136 U/L Total Protein 6.1 L 6.4-8.2 GM/DL Albumin 3.1 L 3.2-4.5 GM/DL Thyroid Stimulating Hormone (TSH) 0.79 0.35-4.94 UIU/ML My Orders Orders - GABBI VILLASENOR APRN Meclizine Tablet (Antivert Tablet) (12/13/18 10:30) Thyroid Stimulating Hormone (12/13/18 10:29) Ceftriaxone For Iv Use (Rocephin For I (12/13/18 11:30) Medications Given in ED Current Medications Medications Dose Ordered Sig/Min Route Start Time Stop Time Status Last Admin Dose Admin Meclizine HCl 25 mg ONCE ONCE PO 12/13/18 10:30 12/13/18 10:31 DC 12/13/18 10:36 25 MG Ondansetron HCl 4 mg ONCE ONCE IVP 12/13/18 10:30 12/13/18 10:31 DC 12/13/18 10:36 4 MG Vital Signs/I&O 12/13/18 10:16 Temp 98.7 Pulse 90 Resp 22 B/P (MAP) 116/78 (91) Pulse Ox 97 O2 Delivery Room Air Capillary Refill : Departure Communication (Admissions) 11:15-patient's symptoms are overall improved at this time though not back to normal. Labs are fairly unremarkable, she does have some new proteinuria from August of this year. Also has a urinary tract infection. Her corporate investigator is Dr. Escalante with [facility] in [place], that phone number is [phone]. I'll fax her labs and my note to the office, Dr. Escalante was unavailable for phone call but I did speak with the office nurse who will arrange close follow-up. 1206-on bedside ultrasound baby a his low which patient states is normal, heart rate 150, baby B is up higher, heart rate also 150. Verified with Dr. AZUL at bedside. Positive motion on both Impression Primary Impression: Urinary tract infection Qualified Codes: N30.00 - Acute cystitis without hematuria Additional Impression: Proteinuria Qualified Codes: O12.12 - Gestational proteinuria, second trimester Disposition: HOME, SELF-CARE Condition: Stable Departure-Patient Inst. Decision time for Depature: 11:17 Referrals: ROSA MENJIVAR MD (PCP/Family) Primary Care Physician Patient Instructions: Urinary Tract Infection, Adult (DC) Add. Discharge Instructions: 1. Call Dr. Escalante today to make an appointment to be seen early this week for follow-up. Take antibiotics as directed. Return to the emergency room for any concerns. Scripts Promethazine HCl (Promethazine Tablet) 25 Mg Tablet 0.5 TAB PO Q8H PRN for NAUSEA/VOMITING, #14 TAB 0 Refills Prov: GABBI VILLASENOR APRN 12/13/18 Cefuroxime Axetil (Cefuroxime) 250 Mg Tablet 250 MG PO BID, #10 TAB Prov: GABBI VILLASENOR APRN 12/13/18 Work/School Note: Work Release Form Date Seen in the Emergency Department: Dec 13, 2018 Return to Work: Dec 14, 2018 GABBI VILLASENOR APRN Dec 13, 2018 10:33
[2018-12-13 10:40] LABS: BILIRUBIN,URINE NEGATIVE (NEGATIVE); CLARITY,URINE CLEAR; COLOR,URINE YELLOW; GLUCOSE, URINE (UA) NEGATIVE (NEGATIVE); KETONES,URINE 1+ (NEGATIVE); LEUKOCYTE ESTERASE ,URINE 3+ (NEGATIVE); NITRITE,URINE NEGATIVE (NEGATIVE); PH,URINE 6 (5-9); PROTEIN,URINE 2+ (NEGATIVE); UROBILINOGEN,URINE 1 MG/DL (NORMAL)
[2018-12-13 10:45] LABS: BASOPHILS % (AUTO) 0 % (0-10); EOSINOPHILS # (AUTO) 0.1 10^3/uL (0.0-0.3); EOSINOPHILS % (AUTO) 1 % (0-10); HEMATOCRIT 31 % (35-52); HEMOGLOBIN 9.9 G/DL (11.5-16.0); LYMPHOCYTES # (AUTO) 1.6 X 10^3 (1.0-4.0); LYMPHOCYTES % (AUTO) 18 % (12-44); MEAN CORPUSCULAR HEMOGLOBIN 24 PG (25-34); MEAN CORPUSCULAR HGB CONC 32 G/DL (32-36); MEAN CORPUSCULAR VOLUME 74 FL (80-99); MONOCYTES # (AUTO) 0.6 X 10^3 (0.0-1.0); MONOCYTES % (AUTO) 7 % (0-12); NEUTROPHILS # (AUTO) 6.5 X 10^3 (1.8-7.8); NEUTROPHILS % (AUTO) 74 % (42-75); PLATELET COUNT 256 10^3/uL (130-400); RED CELL DISTRIBUTION WIDTH 15.7 % (10.0-14.5); WHITE BLOOD COUNT 8.7 10^3/uL (4.3-11.0)
[2018-12-13 10:53] LABS: BACTERIA,URINE MODERATE /HPF; RBC,URINE RARE /HPF; SQUAMOUS EPITHELIAL CELL,UR 25-50 /HPF; WBC,URINE 25-50 /HPF
[2018-12-13 11:03] LABS: ALANINE AMINOTRANSFERASE 19 U/L (0-55); ALBUMIN 3.1 GM/DL (3.2-4.5); ALKALINE PHOSPHATASE 84 U/L (40-136); BILIRUBIN,TOTAL 0.4 MG/DL (0.1-1.0); BUN/CREATININE RATIO 7; CARBON DIOXIDE 17 MMOL/L (21-32); CHLORIDE 109 MMOL/L (98-107); CREATININE SERUM 0.54 MG/DL (0.60-1.30); GFR ESTIMATED > 60; GLUCOSE 108 MG/DL (70-105); POTASSIUM 3.7 MMOL/L (3.6-5.0); SODIUM 137 MMOL/L (135-145); TOTAL PROTEIN 6.1 GM/DL (6.4-8.2)
[2018-12-13] MEDS ORDERED: CEFU250T80 PO (11:18)
[2018-12-13] MEDS ORDERED: PROM25TA14 PO (11:18)
[2018-12-13] MEDS ORDERED: cefTRIAXone FOR IV USE 1,000 MG in WATER (STERILE) FOR INJECTION 10 ML IV ONE (11:30)
--- NOTE | 2018-12-13 12:05 | NUR ---
BEDSIDE US USED BY DR. AZUL TO FIND FHT. FHT OF 150 IN BOTH BABIES.
[2018-12-13 12:35] VITALS: BP 105/65
== END 2018-12-13 12:40 | disposition home or self-care (01) ==
LOC: EDUNIT# 10:10 → ER 10:12
DX: O23.42 Unspecified infection of urinary tract in pregnancy, second trimester (principal); O12.12 Gestational proteinuria, second trimester; Z3A.24 24 weeks gestation of pregnancy; Z90.89 Acquired absence of other organs; Z90.49 Acquired absence of other specified parts of digestive tract
CPT/HCPCS: 36415; 80053; 81000; 84443; 85025; 87088; 96361; 96374; 96375

== ENCOUNTER 2020-10-14 15:32 | Outpatient (CLI) | payer BC, MEDICAID ==
[~2020-10-14] VITALS: Ht 152.4 cm; Wt 76.2 kg
[~2020-10-14 15:32] MED LIST changes: +CEFU250T80 PO
[2020-10-14 16:00] VITALS: BP 120/71
[2020-10-14 16:08] LABS: BILIRUBIN,URINE NEGATIVE (NEGATIVE); COLOR,URINE YELLOW; GLUCOSE, URINE (UA) NEGATIVE (NEGATIVE); KETONES,URINE TRACE (NEGATIVE); LEUKOCYTE ESTERASE ,URINE 1+ (NEGATIVE); NITRITE,URINE NEGATIVE (NEGATIVE); PROTEIN,URINE 1+ (NEGATIVE)
[2020-10-14 16:16] LABS: CLARITY,URINE SL CLOUDY
[2020-10-14 16:18] LABS: AMORPHOUS SEDIMENT,UR FEW AMOR PHOSPHATE /LPF; BACTERIA,URINE MODERATE /HPF; WBC,URINE 0-2 /HPF
[2020-10-14] MEDS ORDERED: LACTATED RINGERS 1,000 ML IV SCH (17:15)
[2020-10-14] MEDS ORDERED: ceFAZolin INJECTION 1,000 MG in WATER (STERILE) FOR INJECTION 10 ML IV ONE (17:15)
[2020-10-14 17:41] LABS: BASOPHILS % (AUTO) 0 % (0-10); EOSINOPHILS # (AUTO) 0.1 10^3/uL (0.0-0.3); EOSINOPHILS % (AUTO) 1 % (0-10); HEMATOCRIT 29 % (35-52); HEMOGLOBIN 8.9 g/dL (11.5-16.0); LYMPHOCYTES # (AUTO) 1.4 10^3/uL (1.0-4.0); LYMPHOCYTES % (AUTO) 16 % (12-44); MEAN CORPUSCULAR HEMOGLOBIN 22 pg (25-34); MEAN CORPUSCULAR HGB CONC 31 g/dL (32-36); MEAN CORPUSCULAR VOLUME 70 fL (80-99); MEAN PLATELET VOLUME 9.9 fL (9.0-12.2); MONOCYTES # (AUTO) 0.6 10^3/uL (0.0-1.0); MONOCYTES % (AUTO) 7 % (0-12); NEUTROPHILS # (AUTO) 6.5 10^3/uL (1.8-7.8); NEUTROPHILS % (AUTO) 75 % (42-75); PLATELET COUNT 243 10^3/uL (130-400); WHITE BLOOD COUNT 8.6 10^3/uL (4.3-11.0)
[2020-10-14 17:54] LABS: ALBUMIN 3.3 GM/DL (3.2-4.5); CHLORIDE 107 MMOL/L (98-107); POTASSIUM 3.7 MMOL/L (3.6-5.0); SODIUM 138 MMOL/L (135-145)
[2020-10-14 17:55] LABS: CALCIUM 8.9 MG/DL (8.5-10.1)
[2020-10-14 17:57] LABS: GLUCOSE 89 MG/DL (70-105); TOTAL PROTEIN 6.1 GM/DL (6.4-8.2)
[2020-10-14 17:58] LABS: CARBON DIOXIDE 20 MMOL/L (21-32)
[2020-10-14 17:59] LABS: BILIRUBIN,TOTAL 0.3 MG/DL (0.1-1.0)
[2020-10-14 18:00] LABS: ALKALINE PHOSPHATASE 53 U/L (40-136); CREATININE SERUM 0.55 MG/DL (0.60-1.30); GFR ESTIMATED > 60
[2020-10-14] MEDS ORDERED: IRON SUCROSE 200 MG/10 ML (VENOFER) VIAL IV NR (18:00)
[2020-10-14 18:01] LABS: BUN/CREATININE RATIO 11
[2020-10-14 18:03] LABS: ALANINE AMINOTRANSFERASE 9 U/L (0-55)
[2020-10-14 18:18] LABS: RETICULOCYTE % 1.7 % (0.50-2.40)
[2020-10-14] MEDS ORDERED: CEPH500T PO (19:54)
[2020-10-14 20:14] VITALS: BP 120/71
--- NOTE | 2020-10-16 16:05 | Physician Query-Final Dx ---
CHRISTY ACOSTA 10/16/20 1605: Final Diagnosis Give Final Diagnosis Please give Final Diagnosis LIA DORADO DO 10/16/201950: Final Diagnosis Give Final Diagnosis 23 week gestation no local anemia iron deficiency CHRISTY ACOSTA Oct 16, 2020 16:05 LIA DORADO DO Oct 16, 2020 19:51
== END 2020-10-14 20:00 | disposition home or self-care (01) ==
LOC: WSo 15:32 → LDRP 15:32 → WSo 20:00
PROVIDERS: ATTEND Obstetrics & Gynecology
DX: O99.012 Anemia complicating pregnancy, second trimester (principal); Z3A.23 23 weeks gestation of pregnancy
CPT/HCPCS: 36415; 80053; 81000; 82728; 83540; 83550; 85025; 85045; 87088

== ENCOUNTER → 2020-12-01 | Outpatient (CLI) | payer BC, MEDICAID ==
[~2020-12-01] MED LIST changes: +CEPH500T PO; -SULF1TAB35 PO; +SULF1TAB38 PO
== END ==
LOC: LABNPT 09:59
PROVIDERS: ATTEND Family Medicine
DX: R73.09 Other abnormal glucose (principal)
CPT/HCPCS: 82951; 82952

== ENCOUNTER 2022-10-15 19:21 | Emergency (ER) | payer BC, MEDICAID ==
[~2022-10-15] VITALS: Ht 152.4 cm; Wt 65.0 kg
[2022-10-15 19:25] VITALS: BP 120/76
--- NOTE | 2022-10-15 19:34 | ED Lower Extremity ---
General Stated Complaint: FALL/LEFT FOOT INJURY Source: patient Exam Limitations: no limitations (DMITRI CAVANAUGH) History of Present Illness Date Seen by Provider: Oct 15, 2022 Time Seen by Provider: 19:31 Initial Comments Patient is a 36-year-old female who presents to ED with pain to her left foot. 45 minutes ago she got out of a van andbstates she landed awkwardly when she stepped out of the van on her left foot. Her toes rolled inwards. She had immediate pain. Has not been able to stand or bear weight. Radiating pain up to the left ankle. Denies any swelling or redness. Denies taking anbything for pain. Patient denies chest pain, cough, shortness of breath, nausea, vomiting, diarrhea, ankle pain, calf pain (DMITRI CAVANAUGH) Allergies and Home Medications Allergies Coded Allergies: No Known Drug Allergies (Unverified , 08/16/18) Patient Home Medication List Home Medication List Reviewed: Yes (DMITRI CAVANAUGH) Cefuroxime Axetil (Cefuroxime) 250 Mg Tablet, 250 MG PO BID Prescribed by: GABBI VILLASENOR on 12/13/181117 Cephalexin (Cephalexin) 500 Mg Tablet, 500 MG PO TID Prescribed by: MARZENA ROSAS on 10/14/201953 Ondansetron HCl (Zofran) 4 Mg Tab, 4 MG PO, (Reported) Entered as Reported by: SUNIL DIALLO on 08/15/181846 Progesterone (Progesterone in Oil) 50 Mg/1 Ml Vial, 50 MG IM, (Reported) Entered as Reported by: SUNIL DIALLO on 08/15/181846 Promethazine HCl (Promethazine Tablet) 25 Mg Tablet, 0.5 TAB PO Q8H PRN for NAUSEA/VOMITING Prescribed by: GABBI VILLASENOR on 12/13/18 1118 [Estradiol] , (Reported) Entered as Reported by: SUNIL DIALLO on 08/15/181846 Review of Systems Constitutional: No chills, No diaphoresis EENTM: No ear pain, No blurred vision, No double vision Respiratory: No cough Cardiovascular: No chest pain Gastrointestinal: No abdominal pain, No diarrhea, No nausea, No vomiting Genitourinary: No decreased output, No discharge Musculoskeletal: No back pain; joint pain, joint swelling, muscle pain Skin: No change in color, No change in hair/nails (DMITRI CAVANAUGH) All Other Systems Reviewed Negative Unless Noted: Yes (DMITRI CAVANAUGH) Past Xflgbul-Bksxlx-Ndzubk Hx Seasonal Allergies Seasonal Allergies: No (DMITRI CAVANAUGH) Past Medical History Surgeries: Yes (LEFT ACL) Appendectomy, Gallbladder, Orthopedic, Tonsillectomy Respiratory: Yes (LATENT TB) Cardiac: No Neurological: No Reproductive Disorders: Yes (INFERTILITY ISSUES --ALL PREGNANCIES HAVE BEEN IVF) Sexually Transmitted Disease: No HIV/AIDS: No Genitourinary: No Gastrointestinal: No Musculoskeletal: No Endocrine: No HEENT: No Cancer: No Psychosocial: No Integumentary: No Blood Disorders: No (DMITRI CAVANAUGH) Family Medical History No Pertinent Family Hx (DMITRI CAVANAUGH) Physical Exam Vital Signs Vital Signs - First Documented 10/15/22 19:25 Temp 36.4 Pulse 87 Resp 16 B/P (MAP) 120/76 (91) (STEPHANIE GREENE DO) Vital Signs Capillary Refill : (DMITRI CAVANAUGH) Height, Weight, BMI Height: 5'0.00" Weight: 176lbs. 0.0oz. 79.583921bh; 32.80 BMI Method:Stated General Appearance: WD/WN, no apparent distress HEENT: PERRL/EOMI, normal ENT inspection, TMs normal, pharynx normal Neck: non-tender, full range of motion, supple, normal inspection Cardiovascular: regular rate, rhythm, no edema, no gallop, no JVD Respiratory: chest non-tender, lungs clear, normal breath sounds, no respiratory distress, no accessory muscle use Gastrointestinal: normal bowel sounds, non tender, soft, no organomegaly Back: normal inspection, no CVA tenderness Ankles: bilateral ankle non-tender, bilateral ankle normal inspection, bilatera l ankle normal range of motion Feet: left foot pain, left foot soft tissue tenderness (Tenderness along the second through fourth metatarsals. Normal active range of motion of the digits. Neurovascular intact. No obvious bone deformity), left foot swelling Neurologic/Psychiatric: grain drier II-XII nml as tested, no motor/sensory deficits, alert, normal mood/affect, oriented x 3 Skin: normal color, warm/dry (DMITRI CAVANAUGH) Progress/Results/Core Measures Results/Orders Medications Given in ED Current Medications Medications Dose Ordered Sig/Min Route Start Time Stop Time Status Last Admin Dose Admin Ibuprofen 600 mg ONCE ONCE PO 10/15/22 19:45 10/15/22 19:46 DC 10/15/22 19:44 600 MG (STEPHANIE GREENE DO) Vital Signs/I&O 10/15/22 19:25 Temp 36.4 Pulse 87 Resp 16 B/P (MAP) 120/76 (91) (STEPHANIE GREENE DO) Departure Communication (PCP) Reviewed previous ER visits, H&P, lab testing. Differential diagnosis foot sprain, foot fracture. Patient presents to the ED with left foot injury. This occurred 45 minutes before arrival. Not able to bear weight. No ankle tenderness. Pain along the second through fourth metatarsals. No significant swelling bruising or obvious bone deformity. Neurovascular intact. No ankle tenderness. Achilles tendon intact. She requested ibuprofen 600 mg which was provided. X-ray was ordered which was negative for acute fracture. Discussed these results with patient. Do not currently have crutches. I do recommend going to the pharmacy to get crutches. Lobo wrap was provided. Ice and elevate. Continue with ibuprofen for the next 1 to 2 weeks to help with pain. Range of motion exercises. If continued pain over the next 1 to 2 weeks orthopedic outpatient follow-up. Patient agrees with plan of action. Return precaution were discussed. (DMITRI CAVANAUGH) Impression Primary Impression: Foot sprain Disposition: 01 HOME, SELF-CARE Condition: Stable Departure-Patient Inst. Decision time for Depature: 20:05 (DMITRI CAVANAUGH) Referrals: ROSA MENJIVAR MD (PCP/Family) Primary Care Physician BAUTISTA CONSTANTINO MD Patient Instructions: Foot Sprain ED Add. Discharge Instructions: Recommend crutches to help get around at home. Ice and elevate. Orthopedic follow-up in 7 to 14 days if pain progress. Lobo wrap for support. ATTENDING PHYSICIAN NOTE: I WAS PHYSICALLY PRESENT ER PHYSICIAN, BUT I WAS NOT INVOLVED IN ANY DECISION MAKING OR ANY CARE OF THIS PATIENT, AND I AM NOT COLLABORATING PHYSICIAN. (STEPHANIE GREENE DO) DMITRI CAVANAUGH Oct 15, 2022 19:34 STEPHANIE GREENE DO Oct 16, 2022 06:07
[2022-10-15] MEDS ORDERED: IBUPROFEN 600 MG (MOTRIN) TAB PO ONE (19:45)
--- NOTE | 2022-10-15 19:59 | Diagnostic Imaging Report ---
EXAMINATION: Left foot radiographs, 3 views. COMPARISON: None. HISTORY: 36-year-old female, left foot pain. FINDINGS: There is normal variant congenital fusion of the fifth digit middle and distal phalanges. There is very mild degenerative type calcaneal enthesopathy. There is no identified acute fracture. There is no radiopaque foreign body. Joint spaces are well preserved. IMPRESSION: Unremarkable radiographs of the left foot. Dictated by: Dictated on workstation # [id number]
== END 2022-10-15 20:14 | disposition home or self-care (01) ==
LOC: EDUNIT# 19:21 → ER 19:23
DX: S93.602A Unspecified sprain of left foot, initial encounter (principal); Z28.310 Unvaccinated for COVID-19; X50.1XXA Overexertion from prolonged static or awkward postures, initial encounter
CPT/HCPCS: 73630